=== PATIENT | male | born 1955 | race Caucasian/White ===

== ENCOUNTER 2020-10-06 22:36 | Inpatient (IN) | payer BC ==
--- NOTE | 2020-10-06 22:44 | ED Physician Documentation ---
PD HPI DYSPNEA - Stated complaint Stated Complaint: SOA - History obtained from History obtained from: Patient - History of Present Illness Timing - onset: How many months ago (gradually worsening over several months) Timing - details: Gradual onset Pain level max: 0 Pain level now: 0 Improved by: Rest Worsened by: Exertion Associated symptoms: Cough, Bilateral edema. No: Fever, Wheezing, Chest pain / discomfort Recently seen: Not recently seen - Additional information Additional information: BIBA. patient c/o several months of gradually worsening shortness of breath, primarily dyspnea on exertion. He has had intermitten, nonproductive cough over the past 2 weeks and he stopped both his lasix and his lisinopril one week ago, as he felt that the cough would worsen with dosing of these medications and thus was concerned that the cough was a side effect of these medications. He describes gradual but significant worsening of dyspnea over past 1-2 weeks; he says the reason he finally came in to the ED tonight was that his kicked him out of the house (he arrives to ED with large, packed suitcase), although he also says he had been considering coming to ED recently anyway due to the severity of the JOVEL. Review of Systems Constitutional: denies: Fever, Chills, Sweats Eyes: reports: Reviewed and negative Ears: reports: Reviewed and negative Nose: reports: Reviewed and negative Throat: reports: Reviewed and negative Cardiac: reports: Reviewed and negative Respiratory: reports: Dyspnea, Cough (occasional nonproductive cough) GI: reports: Reviewed and negative : denies: Dysuria, Frequency Skin: reports: Reviewed and negative Musculoskeletal: reports: Extremity swelling Neurologic: reports: Reviewed and negative PD PAST MEDICAL HISTORY - Past Medical History Past Medical History: Yes Cardiovascular: Congestive heart failure, Hypertension, Arrhythmia Respiratory: None - Past Surgical History Past Surgical History: Yes Cardiovascular: Coronary stent - Present Medications Home Medications: Ambulatory Orders Medication Instructions Recorded Confirmed Furosemide [Lasix] 20 - 40 mg PO DAILY 10/06/20 10/07/20 Rivaroxaban [Xarelto] 20 mg PO DAILY 10/06/20 10/06/20 lisinopriL [Zestril] 5 mg PO DAILY 10/06/20 10/07/20 Atorvastatin Calcium 40 mg PO QPM 10/07/20 10/07/20 Metoprolol Succinate [Toprol Xl] 100 mg PO DAILY 10/07/20 10/07/20 - Allergies Allergies/Adverse Reactions: Allergies Allergy/AdvReac Type Severity Reaction Status Date / Time No Known Drug Allergies Allergy Verified 10/06/20 23:04 - Living Situation Living Arrangement: reports: Other (was "kicked out" (per patient) of his home tonight by ; does not know where he will be living at this time) - Social History Does the pt smoke?: No ETOH Use: Other (h/o heavy, regular drinking (per patient) but currently drinks rarely) PD ED PE NORMAL - Vitals Vital signs reviewed: Yes - General General: Alert and oriented X 3, No acute distress, Well developed/nourished - HEENT HEENT: Moist mucous membranes - Neck Neck: Supple, no meningeal sign - Cardiac Cardiac: No murmur - Respiratory Respiratory: No respiratory distress, Other (exhibits shortness of breath when conversing) - Abdomen Abdomen: Soft, Non tender - Derm Derm: Normal color, Warm and dry PD ED PE EXPANDED - Cardiac Cardiac: Irregularly irregular - Respiratory Respiratory: Decreased breath sounds, Other (bibasilar rales) - Abdomen Abdomen: Distended (appears distended but difficult to assess whether this is part of what appears to be combination of large body habitus and possibly anasarca) - Extremities Extremities: Pedal edema bilateral (severe bilateral symmetric edema) Results - Vitals Vitals: Vital Signs - 24 hr 10/07/20 10/07/20 10/07/20 08:16 10:07 11:51 Temperature 36.4 C L 36.3 C L Heart Rate [ 97 95 Brachial] Respiratory 18 20 Rate Blood Pressure 128/71 Blood Pressure 108/78 120/46 L [Right Brachial artery] O2 Saturation 97 94 Oxygen O2 Source Room air - EKG (time done) No standard instances Rate: Rate (enter#) (122) Rhythm: Atrial fibrillation [place]: Normal Ischemia: Q waves (V1-V4) - Labs Labs: Laboratory Tests 10/06/20 10/06/20 10/06/20 23:30 23:30 23:30 WBC 9.4 RBC 2.86 L Hgb 10.8 L Hct 34.8 L MCV 121.7 H MCH 37.8 H MCHC 31.0 L RDW 14.6 Plt Count 70 L MPV 12.6 H Neut # (Auto) 4.9 Lymph # (Auto) 1.0 L [place] # (Auto) 3.1 H Eos # (Auto) 0.1 Baso # (Auto) 0.0 Absolute Nucleated RBC 0.00 Nucleated RBC % 0.0 Manual Slide Review Indicated Platelet Estimate DECREASED (<130,000) Platelet Morphology NORMAL APPEARANCE RBC Morph Micro Appear 1+ MACROCYTOSIS PT 39.7 H INR 3.9 H APTT 34.5 H Sodium 132 L Potassium 4.6 Chloride 99 L Carbon Dioxide 22 Anion Gap 11.0 BUN 28 H Creatinine 1.3 H Estimated GFR (MDRD) 56 L Glucose 101 H Calcium 8.7 Magnesium Total Bilirubin 2.8 H AST 57 H ALT 46 Alkaline Phosphatase 80 Troponin I High Sens B-Natriuretic Peptide Total Protein 7.3 Albumin 3.3 Globulin 4.0 Albumin/Globulin Ratio 0.8 L Lipase 40 Urine Color Urine Clarity Urine pH Ur Specific [place] Urine Protein Urine Glucose (UA) Urine Ketones Urine Occult Blood Urine Nitrite Urine Bilirubin Urine Urobilinogen Ur Leukocyte Esterase Urine RBC Urine WBC Ur Squamous Epith Cells Urine Bacteria Nasal Adenovirus (PCR) Nasal B. parapertussis DNA (PCR) Nasal Coronavir 229E PCR Nasal Coronavir HKU1 PCR Nasal Coronavir NL63 PCR Nasal Coronavir OC43 PCR Nasal Enterovir/Rhinovir PCR Nasal Influenza B PCR Nasal Influenza A PCR Nasal Parainfluen 1 PCR Nasal Parainfluen 2 PCR Nasal Parainfluen 3 PCR Nasal Parainfluen 4 PCR Nasal RSV (PCR) Nasal B.pertussis DNA PCR Nasal C.pneumoniae (PCR) Naveed Human Metapneumo PCR Nasal M.pneumoniae (PCR) Nasal SARS-CoV-2 (PCR) 10/06/20 10/06/20 10/07/20 23:30 23:30 05:41 WBC 11.2 H RBC 2.81 L Hgb 10.7 L Hct 34.1 L MCV 121.4 H MCH 38.1 H MCHC 31.4 L RDW 14.8 Plt Count 77 L MPV 11.8 H Neut # (Auto) 6.0 Lymph # (Auto) 1.2 L [place] # (Auto) 3.7 H Eos # (Auto) 0.1 Baso # (Auto) 0.0 Absolute Nucleated RBC 0.00 Nucleated RBC % 0.0 Manual Slide Review Indicated Platelet Estimate DECREASED (<130,000) Platelet Morphology NORMAL APPEARANCE RBC Morph Micro Appear 2+ MACROCYTOSIS PT INR APTT Sodium Potassium Chloride Carbon Dioxide Anion Gap BUN Creatinine Estimated GFR (MDRD) Glucose Calcium Magnesium Total Bilirubin AST ALT Alkaline Phosphatase Troponin I High Sens 8.7 B-Natriuretic Peptide 416 H Total Protein Albumin Globulin Albumin/Globulin Ratio Lipase Urine Color Urine Clarity Urine pH Ur Specific [place] Urine Protein Urine Glucose (UA) Urine Ketones Urine Occult Blood Urine Nitrite Urine Bilirubin Urine Urobilinogen Ur Leukocyte Esterase Urine RBC Urine WBC Ur Squamous Epith Cells Urine Bacteria Nasal Adenovirus (PCR) Nasal B. parapertussis DNA (PCR) Nasal Coronavir 229E PCR Nasal Coronavir HKU1 PCR Nasal Coronavir NL63 PCR Nasal Coronavir OC43 PCR Nasal Enterovir/Rhinovir PCR Nasal Influenza B PCR Nasal Influenza A PCR Nasal Parainfluen 1 PCR Nasal Parainfluen 2 PCR Nasal Parainfluen 3 PCR Nasal Parainfluen 4 PCR Nasal RSV (PCR) Nasal B.pertussis DNA PCR Nasal C.pneumoniae (PCR) Naveed Human Metapneumo PCR Nasal M.pneumoniae (PCR) Nasal SARS-CoV-2 (PCR) 10/07/20 10/07/20 10/07/20 05:41 06:01 08:20 WBC RBC Hgb Hct MCV MCH MCHC RDW Plt Count MPV Neut # (Auto) Lymph # (Auto) [place] # (Auto) Eos # (Auto) Baso # (Auto) Absolute Nucleated RBC Nucleated RBC % Manual Slide Review Platelet Estimate Platelet Morphology RBC Morph Micro Appear PT INR APTT Sodium 134 L Potassium 4.3 Chloride 99 L Carbon Dioxide 25 Anion Gap 10.0 BUN 30 H Creatinine 1.4 H Estimated GFR (MDRD) 51 L Glucose 103 H Calcium 8.7 Magnesium 1.7 Total Bilirubin AST ALT Alkaline Phosphatase Troponin I High Sens B-Natriuretic Peptide Total Protein Albumin Globulin Albumin/Globulin Ratio Lipase Urine Color YELLOW Urine Clarity CLEAR Urine pH 5.0 Ur Specific [place] 1.020 Urine Protein NEGATIVE Urine Glucose (UA) NEGATIVE Urine Ketones NEGATIVE Urine Occult Blood NEGATIVE Urine Nitrite NEGATIVE Urine Bilirubin NEGATIVE Urine Urobilinogen 0.2 (NORMAL) Ur Leukocyte Esterase NEGATIVE Urine RBC None Seen Urine WBC 0-3 Ur Squamous Epith Cells RARE Squamous Urine Bacteria None Seen Nasal Adenovirus (PCR) NOT DETECTED Nasal B. parapertussis DNA (PCR) NOT DETECTED Nasal Coronavir 229E PCR NOT DETECTED Nasal Coronavir HKU1 PCR NOT DETECTED Nasal Coronavir NL63 PCR NOT DETECTED Nasal Coronavir OC43 PCR NOT DETECTED Nasal Enterovir/Rhinovir PCR NOT DETECTED Nasal Influenza B PCR NOT DETECTED Nasal Influenza A PCR NOT DETECTED Nasal Parainfluen 1 PCR NOT DETECTED Nasal Parainfluen 2 PCR NOT DETECTED Nasal Parainfluen 3 PCR NOT DETECTED Nasal Parainfluen 4 PCR NOT DETECTED Nasal RSV (PCR) NOT DETECTED Nasal B.pertussis DNA PCR NOT DETECTED Nasal C.pneumoniae (PCR) NOT DETECTED Naveed Human Metapneumo PCR NOT DETECTED Nasal M.pneumoniae (PCR) NOT DETECTED Nasal SARS-CoV-2 (PCR) NOT DETECTED - Rads (name of study) chest xray Radiology: Prelim report reviewed, See rad report PD MEDICAL DECISION MAKING - ED course Complexity details: reviewed results, re-evaluated patient, considered differential, d/w patient ED course: tachycardic during most of ED stay; patient says "I'm always fast", "around 110". However, with minimal exertion such as standing and walking a few feet to bathroom or even standing at bedside and using bedside urinal, he becomes markedly dyspneic and heart rate would rapidly increase to 140s-160s; his heart rate and respiratory status would improve gradually once he was back in bed. Modest improvement in heart rate with low-dose IV cardizem. However, even late in stay after 60mg IV lasix and UO of 1500 cc, and despite patient reporting some modest improvement in symptoms when at rest, he again would become rapidly and markedly dyspneic with similar tachycardic rates as before. He thus is inappropriate for d/c home, will admit for further diuresis Departure - Departure Disposition: ED Place in Observation Clinical Impression: Dyspnea Condition: Stable Discharge Date/Time: 10/07/20 08:12
[2020-10-06 23:38] LABS: BASOPHILS % (AUTO) 0.1 %; EOSINOPHILS # (AUTO) 0.1 10^3/uL (0.0-0.7); EOSINOPHILS % (AUTO) 1.5 %; HGB - HEMOGLOBIN 10.8 g/dL (14.0-18.0); MEAN CORPUSCULAR HEMOGLOBIN 37.8 pg (27.0-31.0); MEAN CORPUSCULAR VOLUME 121.7 fL (80.0-94.0); MEAN PLATELET VOLUME 12.6 fL (7.4-11.4); MONOCYTES # (AUTO) 3.1 10^3/uL (0.0-1.0); MONOCYTES % (AUTO) 32.8 %; NEUTROPHILS # (AUTO) 4.9 10^3/uL (1.5-6.6); NEUTROPHILS % (AUTO) 52.7 %; PLT - PLATELET COUNT 70 10^3/uL (130-450); RED BLOOD COUNT 2.86 10^6/uL (4.70-6.10); RED CELL DISTRIBUTION WIDTH 14.6 % (12.0-15.0); WHITE BLOOD COUNT 9.4 x10^3/uL (4.8-10.8)
[2020-10-06 23:41] LABS: INR 3.9 (0.8-1.2); PT - PROTHROMBIN TIME 39.7 secs (9.9-12.6)
[2020-10-06 23:48] LABS: PARTIAL THROMBOPLASTIN TIME 34.5 secs (24.9-33.3)
[2020-10-06 23:51] LABS: ALBUMIN 3.3 g/dL (3.2-5.5); ALBUMIN/GLOBULIN RATIO 0.8 (1.0-2.2); BILIRUBIN,TOTAL 2.8 mg/dL (0.2-1.0); CALCIUM 8.7 mg/dL (8.5-10.3); CREATININE 1.3 mg/dL (0.6-1.2); TOTAL PROTEIN 7.3 g/dL (6.7-8.2)
[2020-10-07 00:04] LABS: PLATELET ESTIMATE, MANUAL DECREASED (<130,000) (NORMAL); PLATELET MORPHOLOGY NORMAL APPEARANCE (NORMAL); RBC MORPHOLOGY (MULTIPLE) 1+ MACROCYTOSIS (NORMAL)
[2020-10-07] MEDS ORDERED: FUROSEMIDE 40 MG/4 ML VIAL IVP STA (02:18)
[2020-10-07] MEDS ORDERED: diltiaZEM INJ 5 MG/ML VIAL IVP STA (03:47)
[2020-10-07] MEDS ORDERED: SODIUM CHLORIDE FLUSH 0.9% 10 ML SYRINGE IVP PRN (05:01)
[2020-10-07] MEDS ORDERED: ONDANSETRON 4 MG/2 ML VIAL IVP PRN (05:01)
[2020-10-07] MEDS ORDERED: ACETAMINOPHEN 325 MG TABLET PO PRN (05:01)
--- NOTE | 2020-10-07 05:05 | HISTORY & PHYSICAL EXAMINATION ---
Chief Complaint - Chief Complaint Chief Complaint: Shortness of breath History of Present Illness - Admitted From Admitted From:: Home - History Obtained From Records Reviewed: Yes History obtained from: Patient, ER Physician, EMR - History of Present Illness HPI Comment/Other: This is a 64-year-old male with a past medical history significant for coronary artery disease status post CABG atrial fibrillation on Xarelto, heart failure although unclear if this is systolic or diastolic dysfunction who presents today complaining of worsening shortness of breath over the past 6 months. He states his symptoms began this past summer when he started to gain weight and noticed his lower extremities becoming more edematous. He reports gaining at least 30 pounds over this period of time. He tried increasing his dose of Lasix from 20 mg to 40 mg without improvement and felt like he was becoming dehydrated, fatigued, dizzy. He stopped taking his Lasix a couple of weeks ago as well as his lisinopril. He has continued to take his metoprolol and Xarelto. He came to the emergency department yesterday evening after his kicked him out of the house. He states that she does not think he takes good care of himself and because of this, he said he was either going to a hotel or hospital and because of its dyspnea he decided to come here. He reports no chest pain. He stated history of coronary artery disease and had a CABG 5 years ago in [facility]. He does report orthopnea and occasional cough. Denies any abdominal pain, nausea, vomiting. Reports no dysuria, urgency, frequency. Denies any recent sick contacts. Reports no sore throat or nasal congestion. He states he does have some chronic sinus problems. He states he was hospitalized about 5 years ago at [facility] for heart failure and required multiple days of diuresis. In the emergency department, he was not hypoxic or tachypneic at rest but he would develop significant dyspnea with minimal exertion. He was tachycardic with heart rates in the 110s and he was in atrial fibrillation. His chest x-ray revealed cardiomegaly with may be some mild pulmonary vascular congestion. He was given 60 mg of IV Lasix in the emergency department and he responded well w ith 1.5 L of urine output. Despite this, he continues to have ongoing dyspnea with minimal exertion and so medicine was consulted for admission. I did discuss goals of care with the patient and he would like to be a full code. History - Past Medical History Cardiovascular: reports: Congestive heart failure, Coronary artery disease, Atrial fibrillation - Past Surgical History Cardiovascular: reports: CABG - Family & Social History Family History Comment/Other: He reports his father in his 70s from coronary artery disease. Living arrangement: At home Living Situation: With spouse/s.o. Social History Notes: He previously worked for [employer] but is now retired. He moved here to [facility] over a month ago from [place]. He is living with his but he was kicked out of the house yesterday. No history of smoking. He has a history of alcohol abuse in the past but has not drank alcohol in the past 2 months. Meds/Allgy - Home Medications Home Medications: Ambulatory Orders Medication Instructions Recorded Confirmed Furosemide [Lasix] 20 - 40 mg PO DAILY 10/06/20 10/07/20 Rivaroxaban [Xarelto] 20 mg PO DAILY 10/06/20 10/06/20 lisinopriL [Zestril] 5 mg PO DAILY 10/06/20 10/06/20 Atorvastatin Calcium 40 mg PO QPM 10/07/20 10/07/20 Metoprolol Succinate [Toprol Xl] 100 mg PO DAILY 10/07/20 10/07/20 - Allergies Allergies/Adverse Reactions: Allergies Allergy/AdvReac Type Severity Reaction Status Date / Time No Known Drug Allergies Allergy Verified 10/06/20 23:04 Review of Systems - Constitutional Constitutional: denies: Fever, Chills, Weakness - Ears, Nose & Throat Ears, Nose & Throat: denies: Nasal discharge, Nasal congestion, Sore throat - Cardiovascular Cariovascular: reports: Edema, Lightheadedness, Exertional dyspnea, Decr. exercise tolerance. denies: Chest pain, Syncope - Respiratory Respiratory: reports: Cough, Orthopnea, SOB with exertion - Gastrointestinal Gastrointestinal: denies: Abdominal pain, Nausea, Vomiting - Genitourinary Genitourinary: denies: Dysuria, Frequency, Hematuria - Integumentary Integumentary: reports: Lesions. denies: Rash - Neurological Neurological: reports: Dizziness. denies: General weakness, Numbness - All Other Systems All Other Systems: reports: Reviewed and negative Prior Level of Functionality: He is independent with ADLs. Exam - Vital Signs Reviewed Vital Signs: Yes Vital Signs: Vital Signs x48h Temp Pulse Resp BP Pulse Ox 10/07/20 03:55 99 109/78 10/07/20 03:50 120 H 120/90 H 10/07/20 02:45 18 10/07/20 02:30 111 H 18 119/80 99 10/07/20 00:00 117 H 22 113/75 100 10/06/20 22:47 36.7 C 120 H 20 111/98 H 100 - Physical Exam General Appearance: positive: No acute distress, Alert Eyes Bilateral: positive: Normal inspection, Conjunctivae nml ENT: positive: ENT inspection nml Neck: positive: Nml inspection Respiratory: positive: No respiratory distress, Other. negative: Wheezes, Rales Cardiovascular: positive: Irregularly irregular, Tachycardia. negative: Bradycardia, Systolic murmur Abdomen: positive: Non-tender, No distention, Other (He is nontender. He has pitting edema throughout his abdomen about +1). negative: Tenderness, Rebound Rectal: positive: Other (Scrotal edema.) Skin: positive: Warm, Dry Extremities: positive: Pedal edema (He has +2 pitting edema in his bilateral lower extremities. This extends all the way up to the abdomen) Neurologic/Psychiatric: positive: Oriented x3, Motor nml. negative: Disoriented to person, Disoriented to place, Disoriented to time Conclusion/Plan - Problem List (1) Acute on chronic congestive heart failure Conclusion/Plan: It is unclear if he has systolic or diastolic dysfunction as we have no prior echocardiogram to compare to and he is unaware himself. Despite his BNP only being in the 400s and no significant pulmonary vascular congestion, he does appear to be in heart failure given his significant lower extremity edema and dyspnea with exertion. He has pitting edema all the way up to his abdomen. Responded well to Lasix IV in the emergency department. We will continue to diurese him with Lasix IV [address] will [address] him on a 1800 mL fluid restriction. Low-sodium diet. Check daily weights. Strict I's and O's. If he is here on Friday then we will obtain an echocardiogram. I have requested his records from cardiology in [place]. We will check a urinalysis to evaluate for proteinuria and other potential causes of his edema. Qualifiers: Heart failure type: unspecified Qualified Code(s): I50.9 - Heart failure, unspecified (2) Atrial fibrillation with rapid ventricular response Conclusion/Plan: His heart rate is elevated in the 110s and he is in atrial fibrillation. EKG does not suggest any obvious ischemia. We will resume his home metoprolol and continue Xarelto. Monitor on telemetry. (3) Acute kidney injury Conclusion/Plan: His creatinine is elevated at 1.3 and is unclear if this is acute kidney injury or chronic kidney disease. I have requested records from his special delivery clerk. If this is acute kidney injury, this may be cardiorenal due to the heart failure. We will continue to diurese him with Lasix 40 mg IV daily. Monitor his urine output and renal function daily. (4) Hyponatremia Conclusion/Plan: This is likely hypervolemic hyponatremia secondary to heart failure. His sodium is decreased at 132. This should improve with diuresis. Daily BMP. (5) Coronary artery disease Conclusion/Plan: Stable. He has a history of coronary artery disease [facility] in [place]. His troponin is normal and EKG does not suggest ischemia. We will continue his home medications. - Lab Results Lab results reviewed: Yes Fish Bones: 10/07/20 05:41 10/07/20 05:41 - Diagnostic Imaging Results Diagnostic Imaging Results: positive: Final report reviewed - EKG Results EKG Interpreted Independently: Yes EKG Comparison: No prior EKG EKG Findings: Atrial fibrillation with rapid ventricular response. Nonspecific ST segment changes. Core Measures - Anticipated LOS I expect patient to be DC'd or transferred within 96 hours.: Yes - Issues Hospital Issues and Management Plan: 64-year-old male presents with dyspnea on exertion found to have significant anasarca likely due to heart failure. We will place him in observation for diu resis although he may ultimately need to be hospitalized for a few more days to aggressively diurese him. - DVT/VTE - Prophylaxis VTE/DVT Device ordered at admit?: No VTE/DVT Prophylaxis med ordered at admit?: Yes
[2020-10-07 05:51] LABS: BASOPHILS % (AUTO) 0.1 %; EOSINOPHILS # (AUTO) 0.1 10^3/uL (0.0-0.7); EOSINOPHILS % (AUTO) 1.2 %; HGB - HEMOGLOBIN 10.7 g/dL (14.0-18.0); LYMPHOCYTES # (AUTO) 1.2 10^3/uL (1.5-3.5); LYMPHOCYTES % (AUTO) 10.8 %; MEAN CORPUSCULAR HEMOGLOBIN 38.1 pg (27.0-31.0); MEAN CORPUSCULAR HGB CONC 31.4 g/dL (32.0-36.0); MEAN CORPUSCULAR VOLUME 121.4 fL (80.0-94.0); MEAN PLATELET VOLUME 11.8 fL (7.4-11.4); MONOCYTES # (AUTO) 3.7 10^3/uL (0.0-1.0); MONOCYTES % (AUTO) 33.1 %; NEUTROPHILS % (AUTO) 53.2 %; PLT - PLATELET COUNT 77 10^3/uL (130-450); RED BLOOD COUNT 2.81 10^6/uL (4.70-6.10); RED CELL DISTRIBUTION WIDTH 14.8 % (12.0-15.0); WHITE BLOOD COUNT 11.2 x10^3/uL (4.8-10.8)
[2020-10-07 05:58] LABS: CALCIUM 8.7 mg/dL (8.5-10.3); CREATININE 1.4 mg/dL (0.6-1.2); MAGNESIUM 1.7 mg/dL (1.7-2.8)
[2020-10-07 06:09] LABS: PLATELET ESTIMATE, MANUAL DECREASED (<130,000) (NORMAL); PLATELET MORPHOLOGY NORMAL APPEARANCE (NORMAL); RBC MORPHOLOGY (MULTIPLE) 2+ MACROCYTOSIS (NORMAL)
[2020-10-07 07:27] LABS: C. PNEUMONIAE- RESP PCR PANEL NOT DETECTED
[2020-10-07 08:31] LABS: BILIRUBIN,URINE NEGATIVE (NEGATIVE); GLUCOSE, URINE (UA) NEGATIVE (NEGATIVE); KETONES,URINE (UA) NEGATIVE (NEGATIVE); LEUKOCYTE ESTERASE, URINE NEGATIVE (NEGATIVE); NITRITE,URINE NEGATIVE (NEGATIVE); OCCULT BLOOD,URINE NEGATIVE (NEGATIVE); PROTEIN,URINE NEGATIVE (NEGATIVE); UROBILINOGEN,URINE 0.2 (NORMAL) E.U./dL (NORMAL)
[2020-10-07 08:33] LABS: CLARITY,URINE CLEAR (CLEAR)
[2020-10-07] MEDS ORDERED: METOPROLOL TARTRATE 50 MG TABLET PO SCH (09:00)
[2020-10-07 09:21] LABS: RBC,URINE None Seen /HPF (0-5)
[2020-10-07 09:22] LABS: BACTERIA,URINE None Seen /HPF (None Seen); SQUAMOUS EPITHELIAL CELL,UR RARE Squamous (<= Few)
--- NOTE | 2020-10-07 10:03 | XRAY Report ---
PROCEDURE: Chest 2 View X-Ray INDICATIONS: dyspnea TECHNIQUE: 2 view(s) of the chest. 3 images. COMPARISON: None. FINDINGS: Surgical changes and devices: Post median sternotomy. Lungs and pleura: No pleural effusions or pneumothorax. Lungs appear clear. Mediastinum: Mediastinal contours are normal. Heart size is normal. Bones and chest wall: No suspicious bony abnormalities. Soft tissues appear unremarkable. IMPRESSION: Exam is somewhat limited due to x-ray underpenetration on the frontal projections. No acute cardiopulmonary abnormality is identified. Marked cardiomegaly. This report is concordant with the overnight preliminary interpretation. Reviewed by: Lenin Mane MD on 10/07/2020 9:02 AM [facility] Approved by: Lenin Mane MD on 10/07/2020 9:02 AM [facility] Station ID: [id number]
[2020-10-07] MEDS: FUROSEMIDE 40 MG/4 ML VIAL IVP SCH (10:07)
[2020-10-07] MEDS: ATORVASTATIN 10 MG TABLET PO SCH (10:07)
[2020-10-07] MEDS: SODIUM CHLORIDE FLUSH 0.9% 10 ML SYRINGE IVP SCH ×2 (10:08→16:55)
--- NOTE | 2020-10-07 11:31 | PHARMACY PROGRESS NOTE ---
- Best Possible Medication History Admit Date and Time: 10/07/20 0501 Processed by: Pharmacy Medication History completed: Yes Patient Interview: Completed Secondary Source(s): Pharmacy records, Insurance records As the person ultimately responsible for medication therapy, providers are able to order a medication from an existing home medication list in [facility] via the "Reconcile Routine" prior to Confirmation of that medication by retail support specialist. Such practice is discouraged except when the physician, in their clinical judgment, deems that a medical need exists for a medication without regard to previous use.
[2020-10-07] MEDS: RIVAROXABAN 10 MG TABLET PO SCH (16:55)
[2020-10-07] MEDS ORDERED: METOPROLOL TARTRATE 50 MG TABLET PO STA (20:22)
[2020-10-08] MEDS: SODIUM CHLORIDE FLUSH 0.9% 10 ML SYRINGE IVP SCH ×3 (00:05→16:14)
[2020-10-08 05:25] LABS: BASOPHILS % (AUTO) 0.1 %; EOSINOPHILS # (AUTO) 0.1 10^3/uL (0.0-0.7); EOSINOPHILS % (AUTO) 1.3 %; HGB - HEMOGLOBIN 10.3 g/dL (14.0-18.0); LYMPHOCYTES # (AUTO) 1.1 10^3/uL (1.5-3.5); LYMPHOCYTES % (AUTO) 10.5 %; MEAN CORPUSCULAR HEMOGLOBIN 38.4 pg (27.0-31.0); MEAN CORPUSCULAR HGB CONC 31.5 g/dL (32.0-36.0); MEAN PLATELET VOLUME 12.2 fL (7.4-11.4); MONOCYTES # (AUTO) 3.3 10^3/uL (0.0-1.0); MONOCYTES % (AUTO) 32.3 %; NEUTROPHILS # (AUTO) 5.6 10^3/uL (1.5-6.6); NEUTROPHILS % (AUTO) 54.6 %; PLT - PLATELET COUNT 77 10^3/uL (130-450); RED BLOOD COUNT 2.68 10^6/uL (4.70-6.10); RED CELL DISTRIBUTION WIDTH 14.9 % (12.0-15.0); WHITE BLOOD COUNT 10.3 x10^3/uL (4.8-10.8)
[2020-10-08 05:35] LABS: CALCIUM 8.5 mg/dL (8.5-10.3); CREATININE 1.3 mg/dL (0.6-1.2); MAGNESIUM 1.7 mg/dL (1.7-2.8)
[2020-10-08 05:48] LABS: PLATELET MORPHOLOGY NORMAL APPEARANCE (NORMAL); RBC MORPHOLOGY (MULTIPLE) 1+ MACROCYTOSIS (NORMAL)
[2020-10-08 05:49] LABS: PLATELET ESTIMATE, MANUAL DECREASED (<130,000) (NORMAL)
[2020-10-08] MEDS: ATORVASTATIN 10 MG TABLET PO SCH (07:49)
[2020-10-08] MEDS: FUROSEMIDE 40 MG/4 ML VIAL IVP SCH (07:49)
[2020-10-08] MEDS: METOPROLOL SUCCINATE 50 MG TABLET PO SCH (07:52)
--- NOTE | 2020-10-08 11:46 | PROVIDER PROGRESS NOTE ---
Subjective - Prog Note Date Prog Note Date: 10/08/20 Prog Note Time: 11:58 - Subjective Subjective: He is now sitting at the edge of the bed and was able to sit up and transfer to the chair at the bedside. Got a little tachypneic with it. Was a struggle for him but he did it with standby assist. His main complaint is high is now uncomfortable his scrotal sac is. It is tremendously enlarged. He notes that when he goes to bed at night it is big, sleeps and it seems to shrink, but as the course of the day goes on it gets bigger again. Edema improved. Dyspnea on exertion improved. But still significantly present. Current Medications - Current Medications Current Medications: Active Medications Acetaminophen (Acetaminophen 325 Mg Tablet) 650 mg PO Q4HR PRN PRN Reason: Pain 1 to 4 Atorvastatin Calcium (Atorvastatin 10 Mg Tablet) 20 mg PO DAILY [facility] Last Admin: 10/08/20 07:49 Dose: 20 mg Documented by: Furosemide (Furosemide 40 Mg/4 Ml Vial) 40 mg IVP DAILY [facility] Last Admin: 10/08/20 07:49 Dose: 40 mg Documented by: Metoprolol Succinate (Metoprolol Succinate 50 Mg Tablet) 100 mg PO DAILY [facility] Last Admin: 10/08/20 07:52 Dose: 100 mg Documented by: Ondansetron HCl (Ondansetron 4 Mg/2 Ml Vial) 4 mg IVP Q6HR PRN PRN Reason: Nausea / Vomiting Rivaroxaban (Rivaroxaban 10 Mg Tablet) 20 mg PO QDDINNER [facility] Last Admin: 10/07/20 16:55 Dose: 20 mg Documented by: Sodium Chloride (Sodium Chloride Flush 0.9% 10 Ml Syringe) 10 ml IVP PRN PRN PRN Reason: NEEDED PER PROVIDER ORDERS Sodium Chloride (Sodium Chloride Flush 0.9% 10 Ml Syringe) 10 ml IVP 0100,0900,1700 [facility] Last Admin: 10/08/20 07:58 Dose: 10 ml Documented by: Furosemide [Lasix] 20 - 40 mg PO DAILY 10/06/20 Rivaroxaban [Xarelto] 20 mg PO DAILY 10/06/20 lisinopriL [Zestril] 5 mg PO DAILY 10/06/20 Atorvastatin Calcium 40 mg PO QPM 10/07/20 Metoprolol Succinate [Toprol Xl] 100 mg PO DAILY 10/07/20 Objective - Vital Signs/Intake & Output Reviewed Vital Signs: Yes Vital Signs: Vital Signs x48h Temp Pulse Resp BP Pulse Ox 10/08/20 08:06 36.9 C 108 H 12 127/80 98 Intake & Output: Intake & Output 10/05/20 10/06/20 10/07/20 10/08/20 23:59 23:59 23:59 23:59 Intake Total 740 510 Output Total 3625 0625 Balance -0141 -747 - Objective General Appearance: positive: No acute distress, Alert, Other (Tall, morbidly obese white male but walks with a wide-based lumbering gait because of his weight. More side to side and forward at times.) Eyes Bilateral: positive: PERRL, EOMI ENT: positive: No signs of dehydration Neck: positive: Other (Cannot assess for JVD because of the thickness of his neck). negative: Stiff neck Respiratory: positive: No respiratory distress, Other (Very diminished breath sounds at the bases. But no active crackles). negative: Wheezes, Rales, Rhonchi Cardiovascular: positive: Irregularly irregular, Systolic murmur. negative: Gallop/S4, Friction rub Abdomen: positive: Non-tender, No organomegaly, Nml bowel sounds, No distention, Other (Large, obese pannus. Bilateral scrotal enlargement due to edema. Penis retracted.) Skin: positive: Dry, Other (Legs have woody changes of chronic edema) Extremities: positive: Full ROM, Pedal edema Neurologic/Psychiatric: positive: Oriented x3, CN's nml (2-12), Motor nml - Lab Results Fish Bones: 10/08/20 04:50 10/08/20 04:50 Other Labs: Lab Results x24hrs 10/08/20 10/08/20 10/08/20 Range/Units 04:50 04:50 04:50 WBC 10.3 (4.8-10.8) x10^3/uL RBC 2.68 L (4.70-6.10) 10^6/uL Hgb 10.3 L (14.0-18.0) g/dL Hct 32.7 L (42.0-52.0) % MCV 122.0 H (80.0-94.0) fL MCH 38.4 H (27.0-31.0) pg MCHC 31.5 L (32.0-36.0) g/dL RDW 14.9 (12.0-15.0) % Plt Count 77 L (130-450) 10^3/uL MPV 12.2 H (7.4-11.4) fL Neut # (Auto) 5.6 (1.5-6.6) 10^3/uL Lymph # (Auto) 1.1 L (1.5-3.5) 10^3/uL Blount # (Auto) 3.3 H (0.0-1.0) 10^3/uL Eos # (Auto) 0.1 (0.0-0.7) 10^3/uL Baso # (Auto) 0.0 (0.0-0.1) 10^3/uL Absolute Nucleated RBC 0.02 x10^3/uL Nucleated RBC % 0.2 /100WBC Manual Slide Review Indicated Platelet Estimate DECREASED (<130,000) (NORMAL) Platelet Morphology NORMAL APPEARANCE (NORMAL) RBC Morph Micro Appear 1+ MACROCYTOSIS (NORMAL) Sodium 137 (135-145) mmol/L Potassium 3.8 (3.5-5.0) mmol/L Chloride 103 (101-111) mmol/L Carbon Dioxide 25 (21-32) mmol/L Anion Gap 9.0 (6-13) BUN 30 H (6-20) mg/dL Creatinine 1.3 H (0.6-1.2) mg/dL Estimated GFR (MDRD) 56 L (>89) Glucose 114 H (70-100) mg/dL Calcium 8.5 (8.5-10.3) mg/dL Magnesium 1.7 (1.7-2.8) mg/dL B-Natriuretic Peptide 538 H (5-100) pg/mL ABX Reporting Has patient been on IV antibiotics over the past 48 hours?: No Assessment/Plan - Problem List (1) Acute on chronic congestive heart failure Impression: His prior echocardiogram show him to have chronic systolic heart failure. Sounds like he has been noncompliant with medications even as far back as his last visit with the business machine operator. Since admission he has been on Lasix 40 daily, Toprol-XL 100 mg daily, and his blood pressure has maintained that. Occasionally drops to 108 systolic. Creatinine is staying stable with that. BNP is slightly more elevated today 538. That may be due to the creatinine 1.3. Weight was 158.7 on admission. He is now 157.5. Still has significant scrotal edema, but the edema in his thighs is much less. And he is less calf and benitez edema. But it still significant. Plan: Changed to inpatient status last night. He was observation. Continue to use IV Lasix Resume his lisinopril 5 mg a day Continue 1800 cc fluid restriction, low-sodium diet, daily weights, strict intake and output Plan for echocardiogram tomorrow Qualifiers: Heart failure type: systolic Qualified Code(s): I50.9 - Heart failure, unspecified (2) Atrial fibrillation with rapid ventricular response Conclusion/Plan: He came in in the 120s. Over the course of yesterday he went down to 117, then 100 today. Occasionally will go down into the 90s.. We have resumed home metoprolol and continue Xarelto. Monitor on telemetry. (3) Acute kidney injury Conclusion/Plan: His creatinine is elevated at 1.3 and is unclear if this is acute kidney injury or chronic kidney disease. I reviewed his records from the business machine operator.His baseline creatinine appears to be 1-1.2. So this is a mild elevation for him. It is stable during his hospitalization. (4) Hyponatremia resolved. Conclusion/Plan: This is likely hypervolemic hyponatremia secondary to heart failure. 132>>134>>137 this am. . (5) Coronary artery disease Conclusion/Plan: Stable. He has a history of coronary artery disease status post CABG approximately 5 years ago at [facility] in [place]. His troponin is normal and EKG does not suggest ischemia. We will continue his home medications.
[2020-10-08] MEDS: lisinopriL 5 MG TABLET PO SCH (12:27)
[2020-10-08] MEDS: RIVAROXABAN 10 MG TABLET PO SCH (16:14)
[2020-10-08] MEDS: ATORVASTATIN 40 MG TABLET PO SCH (20:01)
[2020-10-09] MEDS: SODIUM CHLORIDE FLUSH 0.9% 10 ML SYRINGE IVP SCH ×3 (01:10→17:11)
[2020-10-09 05:11] LABS: BASOPHILS % (AUTO) 0.1 %; EOSINOPHILS % (AUTO) 1.1 %; HGB - HEMOGLOBIN 9.6 g/dL (14.0-18.0); LYMPHOCYTES % (AUTO) 13.6 %; MEAN CORPUSCULAR HEMOGLOBIN 38.2 pg (27.0-31.0); MEAN CORPUSCULAR HGB CONC 31.5 g/dL (32.0-36.0); MEAN CORPUSCULAR VOLUME 121.5 fL (80.0-94.0); MEAN PLATELET VOLUME 11.4 fL (7.4-11.4); MONOCYTES % (AUTO) 26.2 %; NEUTROPHILS % (AUTO) 57.5 %; PLT - PLATELET COUNT 69 10^3/uL (130-450); RED BLOOD COUNT 2.51 10^6/uL (4.70-6.10); RED CELL DISTRIBUTION WIDTH 15.2 % (12.0-15.0); WHITE BLOOD COUNT 8.8 x10^3/uL (4.8-10.8)
[2020-10-09 05:18] LABS: ABNORMAL LYMPHS % (MANUAL) 0 %; BAND NEUTROPHILS % (MANUAL) 0 %
[2020-10-09 05:26] LABS: CALCIUM 8.3 mg/dL (8.5-10.3); CREATININE 1.3 mg/dL (0.6-1.2); MAGNESIUM 1.6 mg/dL (1.7-2.8)
[2020-10-09 06:10] LABS: DIFFERENTIAL COMMENT MANUAL DIFFERENTIAL; EOSINOPHILS # (MANUAL) 0.1 10^3/uL (0-0.7); LYMPHOCYTES # (MANUAL) 1.2 10^3/uL (1.5-3.5); LYMPHOCYTES % (MANUAL) 14 %; METAMYELOCYTES % (MANUAL) 1 %; MONOCYTES # (MANUAL) 2.3 10^3/uL (0.0-1.0); MYELOCYTES % (MANUAL) 2 %; PLATELET ESTIMATE, MANUAL DECREASED (<130,000) (NORMAL); PLATELET MORPHOLOGY NORMAL APPEARANCE (NORMAL); RBC MORPHOLOGY (MULTIPLE) 2+ MACROCYTOSIS (NORMAL)
[2020-10-09] MEDS: METOPROLOL SUCCINATE 50 MG TABLET PO SCH ×2 (07:54→12:30)
[2020-10-09] MEDS: FUROSEMIDE 40 MG/4 ML VIAL IVP SCH (07:54)
[2020-10-09] MEDS: lisinopriL 5 MG TABLET PO SCH (07:55)
[2020-10-09] MEDS ORDERED: MAGNESIUM OXIDE 400 MG TABLET PO ONE (08:00)
--- NOTE | 2020-10-09 10:48 | PROVIDER PROGRESS NOTE ---
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 Recovers quickly. Eating well. Scrotum is uncomfortable but not painful. Legs are less painful. Current Medications - Current Medications Current Medications: Active Medications Acetaminophen (Acetaminophen 325 Mg Tablet) 650 mg PO Q4HR PRN PRN Reason: Pain 1 to 4 Atorvastatin Calcium (Atorvastatin 40 Mg Tablet) 40 mg PO QPM [facility] Last Admin: 10/08/20 20:01 Dose: 40 mg Documented by: Furosemide (Furosemide 40 Mg/4 Ml Vial) 40 mg IVP DAILY [facility] Last Admin: 10/09/20 07:54 Dose: 40 mg Documented by: Lisinopril (Lisinopril 5 Mg Tablet) 5 mg PO DAILY [facility] Last Admin: 10/09/20 07:55 Dose: 5 mg Documented by: Metoprolol Succinate (Metoprolol Succinate 50 Mg Tablet) 100 mg PO DAILY [facility] Last Admin: 10/09/20 07:54 Dose: 100 mg Documented by: Metoprolol Succinate (Metoprolol Succinate 50 Mg Tablet) 50 mg PO DAILY [facility] Last Admin: 10/09/20 12:30 Dose: Not Given Documented by: Ondansetron HCl (Ondansetron 4 Mg/2 Ml Vial) 4 mg IVP Q6HR PRN PRN Reason: Nausea / Vomiting Rivaroxaban (Rivaroxaban 10 Mg Tablet) 20 mg PO QDDINNER [facility] Last Admin: 10/09/20 17:09 Dose: 20 mg Documented by: Sodium Chloride (Sodium Chloride Flush 0.9% 10 Ml Syringe) 10 ml IVP PRN PRN PRN Reason: NEEDED PER PROVIDER ORDERS Sodium Chloride (Sodium Chloride Flush 0.9% 10 Ml Syringe) 10 ml IVP 0100,0900,1700 [facility] Last Admin: 10/09/20 17:11 Dose: 10 ml Documented by: Furosemide [Lasix] 20 - 40 mg PO DAILY 10/06/20 Rivaroxaban [Xarelto] 20 mg PO DAILY 10/06/20 lisinopriL [Zestril] 5 mg PO DAILY 10/06/20 Atorvastatin Calcium 40 mg PO QPM 10/07/20 Metoprolol Succinate [Toprol Xl] 100 mg PO DAILY 10/07/20 Objective - Vital Signs/Intake & Output Reviewed Vital Signs: Yes Vital Signs: Vital Signs x48h Temp Pulse Pulse Resp BP Pulse Ox 10/09/20 08:03 36.4 C L 101 H 12 114/67 98 10/09/20 03:41 36.7 C 115 H 22 118/69 94 Intake & Output: Intake & Output 10/06/20 10/07/20 10/08/20 10/09/20 23:59 23:59 23:59 23:59 Intake Total 740 1050 540 Output Total 3627 5255 150 Balance -6725 -825 390 - Objective General Appearance: positive: No acute distress, Alert, Other (Morbidly obese white male, sitting comfortably upright in the chair, eating breakfast lunch. Watching TV. 6 foot 2 inches tall weighs 158 kg.) Eyes Bilateral: positive: PERRL ENT: positive: Pharynx nml Neck: negative: Stiff neck Respiratory: positive: No respiratory distress. negative: Wheezes, Rales, Rhonchi Cardiovascular: positive: Regular rate & rhythm. negative: Gallop/S4, Friction rub Abdomen: positive: Non-tender, Nml bowel sounds, No distention, Other (Hugely obese pannus makes it difficult to assess for organomegaly. Scrotal sac 50% the size it was yesterday.) Skin: positive: Warm, Dry Extremities: positive: Full ROM, Pedal edema Neurologic/Psychiatric: positive: Oriented x3, CN's nml (2-12), Motor nml - Lab Results Fish Bones: 10/09/20 04:45 10/09/20 04:45 Other Labs: Lab Results x24hrs 10/09/20 10/09/20 Range/Units 04:45 04:45 WBC 8.8 (4.8-10.8) x10^3/uL RBC 2.51 L (4.70-6.10) 10^6/uL Hgb 9.6 L (14.0-18.0) g/dL Hct 30.5 L (42.0-52.0) % MCV 121.5 H (80.0-94.0) fL MCH 38.2 H (27.0-31.0) pg MCHC 31.5 L (32.0-36.0) g/dL RDW 15.2 H (12.0-15.0) % Plt Count 69 L (130-450) 10^3/uL MPV 11.4 (7.4-11.4) fL Neut # (Auto) Not Reportable Lymph # (Auto) Not Reportable Warrick # (Auto) Not Reportable Eos # (Auto) Not Reportable Baso # (Auto) Not Reportable Absolute Nucleated RBC Not Reportable Total Counted 100 Band Neuts % (Manual) 0 (0 - 10) % Abnorm Lymph % (Manual) 0 % Metamyelocytes % 1 H ( - 0) % Myelocytes % 2 H ( - 0) % Nucleated RBC % Not Reportable Neutrophils # (Manual) 4.9 (1.5-6.6) 10^3/uL Lymphocytes # (Manual) 1.2 L (1.5-3.5) 10^3/uL Monocytes # (Manual) 2.3 H (0.0-1.0) 10^3/uL Eosinophils # (Manual) 0.1 (0-0.7) 10^3/uL Basophils # (Manual) 0.0 (0-0.1) 10^3/uL Differential Comment MANUAL DIFFERENTIAL WBC Morphology NORMAL APPEARANCE (NORMAL) Platelet Estimate DECREASED (<130,000) (NORMAL) Platelet Morphology NORMAL APPEARANCE (NORMAL) RBC Morph Micro Appear 2+ MACROCYTOSIS (NORMAL) Sodium 137 (135-145) mmol/L Potassium 3.5 (3.5-5.0) mmol/L Chloride 102 (101-111) mmol/L Carbon Dioxide 26 (21-32) mmol/L Anion Gap 9.0 (6-13) BUN 29 H (6-20) mg/dL Creatinine 1.3 H (0.6-1.2) mg/dL Estimated GFR (MDRD) 56 L (>89) Glucose 109 H (70-100) mg/dL Calcium 8.3 L (8.5-10.3) mg/dL Magnesium 1.6 L (1.7-2.8) mg/dL ABX Reporting Has patient been on IV antibiotics over the past 48 hours?: No Assessment/Plan - Problem List (1) Acute on chronic congestive heart failure Impression: His prior echocardiogram show him to have chronic systolic heart failure. Sounds like he has been noncompliant with medications even as far back as his last visit with the telecom billing analyst. Since admission he has been on Lasix 40 daily, Toprol-XL 100 mg daily, and his blood pressure has maintained that. Lisinopril 5 mg resumed 10/08. Blood pressure is 102 systolic to 118. Occasionally drops to 108 systolic. Creatinine is staying stable with that. On physical examination he has less leg edema, less scrotal edema. He is less tachypneic. However weight is stable. He is 158 kg today. Admission weight was 158.7. Plan: Changed to inpatient status from observation status 10/07 Continue to use IV Lasix Continue 1800 cc fluid restriction, low-sodium diet, daily weights, strict in take and output Plan for echocardiogram today Plan to discharge by tomorrow or the . But then he should have had enough control of his edema to be comfortable in the outpatient setting. Qualifiers: Heart failure type: systolic Qualified Code(s): I50.9 - Heart failure, unspecified (2) Atrial fibrillation with rapid ventricular response Conclusion/Plan: He came in in the 120s. With resumption of his medications he has slowed down from the 120s. But the rate varies between 9210. Not at goal of being consistently below 110. We have resumed home metoprolol and continue Xarelto. Plan: Increase metoprolol 150 a day Continue to monitor on telemetry (3) Acute kidney injury Conclusion/Plan: His creatinine is elevated at 1.3 and is unclear if this is acute kidney injury or chronic kidney disease. I reviewed his records from the telecom billing analyst.His baseline creatinine appears to be 1-1.2. So this is a mild elevation for him. It is stable during his hospitalization. (4) Hyponatremia resolved. Conclusion/Plan: This is likely hypervolemic hyponatremia secondary to heart failure. 132>>134>>137 this am. . (5) Coronary artery disease Conclusion/Plan: Stable. He has a history of coronary artery disease status post CABG approximately 5 years ago at [facility] in [place]. His troponin is normal and EKG does not suggest ischemia. We will continue his home medications.
[2020-10-09] MEDS: RIVAROXABAN 10 MG TABLET PO SCH (17:09)
[2020-10-09] MEDS: ATORVASTATIN 40 MG TABLET PO SCH (20:27)
[2020-10-10] MEDS: SODIUM CHLORIDE FLUSH 0.9% 10 ML SYRINGE IVP SCH ×2 (01:54→08:27)
[2020-10-10 05:33] LABS: BASOPHILS % (AUTO) 0.1 %; EOSINOPHILS % (AUTO) 1.4 %; HGB - HEMOGLOBIN 9.6 g/dL (14.0-18.0); LYMPHOCYTES % (AUTO) 13.2 %; MEAN CORPUSCULAR HEMOGLOBIN 38.9 pg (27.0-31.0); MEAN CORPUSCULAR HGB CONC 31.8 g/dL (32.0-36.0); MEAN CORPUSCULAR VOLUME 122.3 fL (80.0-94.0); MEAN PLATELET VOLUME 11.7 fL (7.4-11.4); MONOCYTES % (AUTO) 32.1 %; NEUTROPHILS % (AUTO) 52.2 %; PLT - PLATELET COUNT 65 10^3/uL (130-450); RED BLOOD COUNT 2.47 10^6/uL (4.70-6.10); RED CELL DISTRIBUTION WIDTH 15.3 % (12.0-15.0); WHITE BLOOD COUNT 7.7 x10^3/uL (4.8-10.8)
[2020-10-10 05:36] LABS: ABNORMAL LYMPHS % (MANUAL) 0 %
[2020-10-10 05:39] LABS: CALCIUM 8.4 mg/dL (8.5-10.3); CREATININE 1.2 mg/dL (0.6-1.2); MAGNESIUM 1.7 mg/dL (1.7-2.8)
[2020-10-10 06:04] LABS: BAND NEUTROPHILS % (MANUAL) 1 %; DIFFERENTIAL COMMENT MANUAL DIFFERENTIAL; LYMPHOCYTES # (MANUAL) 1.2 10^3/uL (1.5-3.5); LYMPHOCYTES % (MANUAL) 15 %; MONOCYTES # (MANUAL) 1.7 10^3/uL (0.0-1.0); PLATELET ESTIMATE, MANUAL DECREASED (<130,000) (NORMAL); PLATELET MORPHOLOGY NORMAL APPEARANCE (NORMAL); RBC MORPHOLOGY (MULTIPLE) 1+ MACROCYTOSIS (NORMAL)
[2020-10-10] MEDS: lisinopriL 5 MG TABLET PO SCH (08:27)
[2020-10-10] MEDS: FUROSEMIDE 40 MG/4 ML VIAL IVP SCH (08:27)
[2020-10-10] MEDS: METOPROLOL SUCCINATE 50 MG TABLET PO SCH ×2 (08:28)
--- NOTE | 2020-10-10 13:53 | Discharge Plan ---
Discharge Plan Problem Reviewed?: Yes Disposition: Home, Self Care Condition: Poor Prescriptions: Furosemide [Lasix] 40 mg PO DAILY #30 tablet Metoprolol Succinate [Toprol Xl] 50 mg PO DAILY #30 tablet Diet: Cardiac Activity Restrictions: Activity as Tolerated Shower Restrictions: No (fall precaution) Instruction Topics: Heart Failure Meds Control, Heart Failure, Heart Failure Diet Changes, Heart Failure Coping, Furosemide tablets, Metoprolol tablets Health Concerns: heart failure and fluid overloaded Plan of Treatment: you were found to have acute on chronic heart failure with fluid overloaded. advise followup with your PCP and referral to see supervisor extruding department as out-pt. reduced salt intake and reduced your fluid overloaded, and watch closely your weight gain, strongly advise you doing medical compliance, and avoid your alcohol intake. your home medication Metoprolol dosage changed from 100mg daily to 150 mg daily, you Lasix dosage changed to 40 mg daily now, resume your other home meds as the scheduled. Care Goals: stabilization and improvement of your medical conditions. Assessment: discussed in detail care plan with you, answer your questions, you understood and agreed. Additional Instructions or Follow Up instructions: you may followup with your PCP in one week, followup with supervisor extruding department as out- pt. Should your symptoms return or worsen, you may present ER or call 911 for help. Follow-Up Care: [facility], [facility] No Smoking: If you smoke, Please STOP! Call for help. Follow-up with: Peter Dawson MD [Primary Care Provider] -
--- NOTE | 2020-10-10 14:03 | DISCHARGE SUMMARY ---
Discharge Summary Admit Date: 10/07/20 Discharge Date: 10/10/20 Discharging Provider: Arjun Matt Primary Care Provider: Andrew Ortega Condition at Discharge: Poor Discharge Disposition: 01 Home, Self Care Discharge Facility Name: home - DIAGNOSES Discharge Diagnoses with Status of Each Condition: (1) Acute on chronic congestive heart failure resolved in his acute on chronic phase of heart failure. pt and nurse walked with pt, pt has no shortness of breath, Patient's oxygen saturations is stable. Patient was treated with intravenous diuretic Lasix in the hospital. Patient's home diuretics Lasix increased to 40 mg daily. Patient's metoprolol dosage increases to 150 mg daily. Echo show patient had 35% of EF with RVSP 53mmHg. On physical examination he has less leg edema, less scrotal edema. Patient is advised to follow-up with his PCP in 1 week, and a referral to see brand ambassador as outpatient soon as possible. (2) Atrial fibrillation with rapid ventricular response Patient's heart rate is controlled to 92 in the rest. His heart rate increase as it response to exertion status. pt's home meds metoprolol increased to 150 a day from 100mg daily (3) Acute kidney injury resolved (4) Hyponatremia resolved. resolved (5) Coronary artery disease Stable. resume home meds (6)medical non-compliance Patient reported he stopped taking his Lasix and lisinopril For couple weeks before admission. Advised patient it is extremely important for his medical compliant - HPI History of Present Illness: refer from Dr. Salazar's HPI on 10/07/2020 This is a 64-year-old male with a past medical history significant for coronary artery disease status post CABG atrial fibrillation on Xarelto, heart failure although unclear if this is systolic or diastolic dysfunction who presents today complaining of worsening shortness of breath over the past 6 months. He states his symptoms began this past summer when he started to gain weight and noticed his lower extremities becoming more edematous. He reports gaining at least 30 pounds over this period of time. He tried increasing his dose of Lasix from 20 mg to 40 mg without improvement and felt like he was becoming dehydrated, fatigued, dizzy. He stopped taking his Lasix a couple of weeks ago as well as h is lisinopril. He has continued to take his metoprolol and Xarelto. He came to the emergency department yesterday evening after his kicked him out of the house. He states that she does not think he takes good care of himself and because of this, he said he was either going to a hotel or hospital and because of its dyspnea he decided to come here. He reports no chest pain. He stated history of coronary artery disease and had a CABG 5 years ago in [facility]. He does report orthopnea and occasional cough. Denies any abdominal pain, nausea, vomiting. Reports no dysuria, urgency, frequency. Denies any recent sick contacts. Reports no sore throat or nasal congestion. He states he does have some chronic sinus problems. He states he was hospitalized about 5 years ago at [facility] for heart failure and required multiple days of diuresis. In the emergency department, he was not hypoxic or tachypneic at rest but he would develop significant dyspnea with minimal exertion. He was tachycardic with heart rates in the 110s and he was in atrial fibrillation. His chest x-ray revealed cardiomegaly with may be some mild pulmonary vascular congestion. He was given 60 mg of IV Lasix in the emergency department and he responded well with 1.5 L of urine output. Despite this, he continues to have ongoing dyspnea with minimal exertion and so medicine was consulted for admission. I did discuss goals of care with the patient and he would like to be a full code. - HOSPITAL COURSE Hospital Course: Patient was admitted for acute on chronic heart failure with shortness of breathing and fluids overloaded. Patient was given intravenous diuretics Lasix, Fluid restriction, daily weight, low-sodium diet. After treatment, patient clin ically had greatly improved, patient can walk without obviously shortness of breathing. Patient's oxygen saturation is stable. Patient's acute kidney injury was resolved as well. - ALLERGIES Allergies/Adverse Reactions: Allergies Allergy/AdvReac Type Severity Reaction Status Date / Time No Known Drug Allergies Allergy Verified 10/06/20 23:04 - MEDICATIONS Home Medications: Ambulatory Orders Medication Instructions Recorded Confirmed Rivaroxaban [Xarelto] 20 mg PO DAILY 10/06/20 10/06/20 lisinopriL [Zestril] 5 mg PO DAILY 10/06/20 10/07/20 Atorvastatin Calcium 40 mg PO QPM 10/07/20 10/07/20 Metoprolol Succinate [Toprol Xl] 100 mg PO DAILY 10/07/20 10/07/20 Furosemide [Lasix] 40 mg PO DAILY #30 tablet 10/10/20 Metoprolol Succinate [Toprol Xl] 50 mg PO DAILY #30 tablet 10/10/20 - PHYSICAL EXAM AT DISCHARGE General Appearance: positive: No acute distress, Alert. negative: Lethargic Eyes Bilateral: positive: Normal inspection, PERRL, No lid inflammation ENT: positive: ENT inspection nml, No signs of dehydration. negative: Purulent nasal drainage Neck: positive: Nml inspection, Thyroid nml, Trachea midline. negative: Thyromegaly, Stiff neck, Tracheal deviation Respiratory: positive: Chest non-tender, No respiratory distress. negative: Wheezes, Rales, Rhonchi Cardiovascular: positive: Regular rate & rhythm, No murmur. negative: Tachycardia, Bradycardia, Systolic murmur, Diastolic murmur Peripheral Pulses: positive: 2+ Abdomen: positive: Non-tender, Nml bowel sounds, No distention. negative: Tenderness, Guarding, Rebound Back: positive: Nml inspection. negative: CVA tenderness (R), CVA tenderness (L) Skin: positive: Color nml, No rash, Warm, Dry. negative: Cyanosis, Diaphoresis, Pallor Extremities: positive: Non-tender, Full ROM, Nml appearance. negative: Calf te nderness Neurologic/Psychiatric: positive: Oriented x3, Motor nml, Sensation nml, Mood/affect nml. negative: Weakness, Sensory loss, Facial droop, Slurred/abnml speech, Depressed mood/affect - LABS Result Diagrams: 10/10/20 05:11 10/10/20 05:11 - FOLLOW UP Follow Up: you were found to have acute on chronic heart failure with fluid overloaded. advise followup with your PCP and referral to see brand ambassador as out-pt. reduced salt intake and reduced your fluid overloaded, and watch closely your weight gain, strongly advise you doing medical compliance, and avoid your alcohol intake. your home medication Metoprolol dosage changed from 100mg daily to 150 mg daily, you Lasix dosage changed to 40 mg daily now, resume your other home meds as the scheduled. you may followup with your PCP in one week, followup with brand ambassador as out- pt. Should your symptoms return or worsen, you may present ER or call 911 for help. - TIME SPENT Time Spent in Discharge (Minutes): 30
[2020-10-10 14:42] VITALS: BP 116/81
== END 2020-10-10 14:30 | disposition home or self-care (01) | DRG 292 ==
LOC: ED 22:36 → MS2 10-07 05:01 → OBSVTOIN 10-07 14:09
PROVIDERS: ADMIT Internal Medicine; ATTEND Nurse Practitioner Gerontology
DX: I11.0 Hypertensive heart disease with heart failure (principal); E87.1 Hypo-osmolality and hyponatremia; Z68.42 Body mass index [BMI] 45.0-49.9, adult; I50.23 Acute on chronic systolic (congestive) heart failure; I48.91 Unspecified atrial fibrillation; Z79.01 Long term (current) use of anticoagulants; I25.10 Atherosclerotic heart disease of native coronary artery without angina pectoris; T46.4X6A Underdosing of angiotensin-converting-enzyme inhibitors, initial encounter; T50.1X6A Underdosing of loop [high-ceiling] diuretics, initial encounter; Z91.128 Patient's intentional underdosing of medication regimen for other reason; Z95.1 Presence of aortocoronary bypass graft; E66.01 Morbid (severe) obesity due to excess calories; E78.00 Pure hypercholesterolemia, unspecified; Z82.49 Family history of ischemic heart disease and other diseases of the circulatory system; Z20.828 Contact with and (suspected) exposure to other viral communicable diseases
CPT/HCPCS: 0202U; 36415; 71046; 80048; 80053; 81001; 83690; 83735; 83880; 84484; 85025; 85610; 85730; 93005; 93306; 96374; 96375; 96376; 99284; 99285; A9270

== ENCOUNTER 2020-11-19 20:14 | Outpatient (CLI) | payer BC | END 2020-11-19 20:15 | disposition critical access hospital (66) | LOC: EMS 20:14 | PROVIDERS: ATTEND Surgery | DX: R53.1 Weakness (principal) | CPT/HCPCS: A0425; A0427 ==

== ENCOUNTER 2020-11-19 20:36 | Inpatient (IN) | payer BC ==
[2020-11-19] MEDS ORDERED: FUROSEMIDE 40 MG/4 ML VIAL IVP STA (20:46)
--- NOTE | 2020-11-19 20:46 | ED Physician Documentation ---
History of Present Illness - Stated complaint Stated Complaint: GENERLIZED WEAKNESS/EXTREMITY SWELLING - Chief complaint Chief Complaint: Ext Problem - History obtained from History obtained from: Patient - History of Present Illness Timing: How many weeks ago (1) Pain level max: 8 Pain level now: 8 - Additonal information Additional information: Patient is a 64-year-old male with a history of congestive heart failure who presents to the emergency department with a 20 pound weight gain over the past 3 weeks. He states has worsening swelling of the bilateral lower extremities, all the way up into his abdomen and arms. He states he is taking Lasix 40 mg p.o. daily. Has not followed up with his primary care provider since he was discharged from the hospital about a month ago. Having worsening difficulty breathing. He was hypoxic initially with EMS, 88% on room air. They placed him on 2 L nasal cannula oxygen. He does have significant dyspnea with any sort of movement. Patient denies any chest pain. No cough. Nothing makes it better or worse. History of coronary artery disease with CABG Has chronic left shoulder pain, 8/10. worse with movement and better with rest. Review of Systems Ten Systems: 10 systems reviewed and negative Constitutional: denies: Fever, Chills Throat: denies: Sore throat Cardiac: denies: Palpitations Respiratory: denies: Cough GI: denies: Vomiting, Diarrhea Skin: denies: Rash Musculoskeletal: denies: Neck pain, Back pain Neurologic: denies: Headache PD PAST MEDICAL HISTORY - Past Medical History Past Medical History: Yes Cardiovascular: Congestive heart failure, Hypertension, Arrhythmia Respiratory: COPD Neuro: None Endocrine/Autoimmune: Type 2 diabetes : None Psych: None Musculoskeletal: None Derm: None - Past Surgical History Past Surgical History: Yes Cardiovascular: Coronary stent - Present Medications Home Medications: Ambulatory Orders Medication Instructions Recorded Confirmed Rivaroxaban [Xarelto] 20 mg PO DAILY 10/06/20 11/19/20 lisinopriL [Zestril] 5 mg PO DAILY 10/06/20 11/19/20 Atorvastatin Calcium 40 mg PO QPM 10/07/20 11/19/20 Metoprolol Succinate [Toprol Xl] 100 mg PO DAILY 10/07/20 11/19/20 Furosemide [Lasix] 40 mg PO DAILY #30 tablet 10/10/20 11/19/20 Metoprolol Succinate [Toprol Xl] 50 mg PO DAILY #30 tablet 10/10/20 11/19/20 - Allergies Allergies/Adverse Reactions: Allergies Allergy/AdvReac Type Severity Reaction Status Date / Time No Known Drug Allergies Allergy Verified 11/19/20 20:42 - Social History Does the pt smoke?: No Smoking Status: Never smoker Does the pt drink ETOH?: No Does the pt have substance abuse?: No - Immunizations Immunizations are current?: Yes - POLST Patient has POLST: No PD ED PE NORMAL - Vitals Vital signs reviewed: Yes - General General: Alert and oriented X 3, Other (mod resp distress) - HEENT HEENT: PERRL, Moist mucous membranes - Neck Neck: Supple, no meningeal sign - Cardiac Cardiac: Strong equal pulses, Other (tachycardic, irregular) - Respiratory Respiratory: No respiratory distress, Other (crackles B) - Abdomen Abdomen: Soft, Non tender, Non distended - Derm Derm: Warm and dry, No rash - Extremities Extremities: No deformity, Other (diffuse pitting edema from toes to chest and B arms. anasarca) - Neuro Neuro: Alert and oriented X 3 - Psych Psych: Normal mood, Normal affect Results - Vitals Vitals: Vital Signs - 24 hr 11/19/20 11/19/20 11/19/20 20:42 20:52 21:07 Temperature 37.6 C Heart Rate 113 H 105 H 107 H Respiratory 18 15 14 Rate Blood Pressure 113/83 H 113/83 H 93/64 O2 Saturation 94 94 94 11/19/20 11/19/20 11/19/20 21:12 21:15 21:18 Temperature Heart Rate 86 90 106 H Respiratory 12 Rate Blood Pressure 91/50 L 89/47 L 96/56 L O2 Saturation 98 97 11/19/20 21:30 Temperature 36.4 C L Heart Rate 121 H Respiratory 12 Rate Blood Pressure 117/71 O2 Saturation 98 Oxygen O2 Source Nasal cannula - EKG (time done) 2042 Rate: Rate (enter#) (123) Rhythm: Atrial fibrillation (w/RVR) [place]: Normal QRS: Normal Ischemia: Non specific changes - Labs Labs: Laboratory Tests 11/19/20 11/19/20 11/19/20 20:45 20:45 20:45 WBC 26.0 H RBC 2.25 L Hgb 8.7 L Hct 26.2 L MCV 116.4 H MCH 38.7 H MCHC 33.2 RDW 15.1 H Plt Count 107 L MPV 11.6 H Neut # (Auto) Not Reportable Lymph # (Auto) Not Reportable [place] # (Auto) Not Reportable Eos # (Auto) Not Reportable Baso # (Auto) Not Reportable Absolute Nucleated RBC Not Reportable Total Counted 100 Band Neuts % (Manual) 12 H Reactive Lymphs % (Man) 2 Abnorm Lymph % (Manual) 0 Nucleated RBC % Not Reportable Neutrophils # (Manual) 18.5 H Lymphocytes # (Manual) 1.6 Monocytes # (Manual) 5.2 H Eosinophils # (Manual) 0.8 H Basophils # (Manual) 0.0 Differential Comment MANUAL DIFFERENTIAL WBC Morphology 2+ TOXIC GRANULATION Platelet Estimate DECREASED (<130,000) Platelet Morphology NORMAL APPEARANCE RBC Morph Micro Appear NORMAL APPEARANCE Sodium 126 L Potassium 5.4 H Chloride 94 L Carbon Dioxide 20 L Anion Gap 12.0 BUN 98 H* Creatinine 4.8 H Estimated GFR (MDRD) 12 L Glucose 102 H Calcium 8.3 L Total Bilirubin 2.9 H AST 21 ALT 11 Alkaline Phosphatase 72 B-Natriuretic Peptide 632 H Total Protein 7.6 Albumin 2.8 L Globulin 4.8 H Albumin/Globulin Ratio 0.6 L Urine Color Urine Clarity Urine pH Ur Specific [place] Urine Protein Urine Glucose (UA) Urine Ketones Urine Occult Blood Urine Nitrite Urine Bilirubin Urine Urobilinogen Ur Leukocyte Esterase Ur Microscopic Review Urine Culture Comments 11/19/20 21:25 WBC RBC Hgb Hct MCV MCH MCHC RDW Plt Count MPV Neut # (Auto) Lymph # (Auto) [place] # (Auto) Eos # (Auto) Baso # (Auto) Absolute Nucleated RBC Total Counted Band Neuts % (Manual) Reactive Lymphs % (Man) Abnorm Lymph % (Manual) Nucleated RBC % Neutrophils # (Manual) Lymphocytes # (Manual) Monocytes # (Manual) Eosinophils # (Manual) Basophils # (Manual) Differential Comment WBC Morphology Platelet Estimate Platelet Morphology RBC Morph Micro Appear Sodium Potassium Chloride Carbon Dioxide Anion Gap BUN Creatinine Estimated GFR (MDRD) Glucose Calcium Total Bilirubin AST ALT Alkaline Phosphatase B-Natriuretic Peptide Total Protein Albumin Globulin Albumin/Globulin Ratio Urine Color DARK YELLOW Urine Clarity HAZY Urine pH 5.0 Ur Specific [place] >=1.030 H Urine Protein 100 H Urine Glucose (UA) NEGATIVE Urine Ketones NEGATIVE Urine Occult Blood NEGATIVE Urine Nitrite NEGATIVE Urine Bilirubin NEGATIVE Urine Urobilinogen 1 (NORMAL) Ur Leukocyte Esterase TRACE H Ur Microscopic Review INDICATED Urine Culture Comments Not Reportable - Rads (name of study) cxr Radiology: Prelim report reviewed, EMP read contemporaneously, See rad report (Congestive heart failure exacerbation ) PD MEDICAL DECISION MAKING - ED course Complexity details: reviewed results, re-evaluated patient, considered differential, d/w patient, d/w portfolio consultant ED course: Patient is a 64-year-old male who presents to the emergency department with anasarca. Also found to be in renal failure, hyponatremia and hyperkalemia. Also in atrial fibrillation with rapid ventricular response. He had a longstanding history of alcohol abuse until 2018. No alcohol for the past 2 years. Possible that he has liver cirrhosis? He states that his liver has never been evaluated. Does have a leukocytosis, unclear etiology. No fevers. No chills. Blood cultures were drawn and sent. CT of the abdomen pelvis was ordered. This is noncontrast due to the liver failure. This will be followed up by the hospitalist. Patient is significantly dyspneic with very little movement. Discussed with Dr. Sue, hospitalist who accepts This document was made in part using voice recognition software. While efforts are made to proofread this document, sound alike and grammatical errors may occur. Departure - Departure Disposition: 66 [facility] DC/Xfer Clinical Impression: Atrial fibrillation with rapid ventricular response, Hyponatremia, Hyperkalemia, Thrombocytopenia, Macrocytosis Acute on chronic congestive heart failure Qualifiers: Heart failure type: unspecified Qualified Code(s): I50.9 - Heart failure, unspecified Leukocytosis Qualifiers: Leukocytosis type: unspecified Qualified Code(s): D72.829 - Elevated white blood cell count, unspecified Acute renal failure Qualifiers: Acute renal failure type: unspecified Qualified Code(s): N17.9 - Acute kidney failure, unspecified Anemia Qualifiers: Anemia type: unspecified type Qualified Code(s): D64.9 - Anemia, unspecified Condition: Stable
[2020-11-19 20:55] LABS: BASOPHILS % (AUTO) 0.1 %; EOSINOPHILS % (AUTO) 0.3 %; HGB - HEMOGLOBIN 8.7 g/dL (14.0-18.0); LYMPHOCYTES % (AUTO) 2.4 %; MEAN CORPUSCULAR HEMOGLOBIN 38.7 pg (27.0-31.0); MEAN CORPUSCULAR HGB CONC 33.2 g/dL (32.0-36.0); MEAN CORPUSCULAR VOLUME 116.4 fL (80.0-94.0); MEAN PLATELET VOLUME 11.6 fL (7.4-11.4); MONOCYTES % (AUTO) 30.8 %; NEUTROPHILS % (AUTO) 60.7 %; PLT - PLATELET COUNT 107 10^3/uL (130-450); RED BLOOD COUNT 2.25 10^6/uL (4.70-6.10); RED CELL DISTRIBUTION WIDTH 15.1 % (12.0-15.0)
[2020-11-19] MEDS ORDERED: diltiaZEM INJ 5 MG/ML VIAL IVP STA (20:55)
[2020-11-19 21:04] LABS: ABNORMAL LYMPHS % (MANUAL) 0 %
--- NOTE | 2020-11-19 21:06 | XRAY Report ---
PROCEDURE: Chest 1 View X-Ray INDICATIONS: dyspnea, CHF TECHNIQUE: One view of the chest was acquired. COMPARISON: 10/06/2020 FINDINGS: Surgical changes and devices: Remote CABG. Lungs and pleura: Pulmonary edema, mild right basilar atelectasis, small right pleural effusion. Mediastinum: Mediastinal contours appear normal. Marked cardiomegaly. Bones and chest wall: No suspicious bony lesions. Overlying soft tissues appear unremarkable. IMPRESSION: Congestive heart failure exacerbation Reviewed by: Donal Lawrence MD on 11/19/2020 9:05 PM PST Approved by: Donal Lawrence MD on 11/19/2020 9:05 PM PST Station ID: [id number]
[2020-11-19 21:09] LABS: ALBUMIN 2.8 g/dL (3.2-5.5); ALBUMIN/GLOBULIN RATIO 0.6 (1.0-2.2); BILIRUBIN,TOTAL 2.9 mg/dL (0.2-1.0); CALCIUM 8.3 mg/dL (8.5-10.3); CREATININE 4.8 mg/dL (0.6-1.2); TOTAL PROTEIN 7.6 g/dL (6.7-8.2)
[2020-11-19] MEDS ORDERED: SODIUM CHLORIDE 0.9% 500 ML IV STA (21:13)
[2020-11-19 21:27] LABS: BAND NEUTROPHILS % (MANUAL) 12 %; EOSINOPHILS # (MANUAL) 0.8 10^3/uL (0-0.7); LYMPHOCYTES # (MANUAL) 1.6 10^3/uL (1.5-3.5); LYMPHOCYTES % (MANUAL) 4 %; MONOCYTES # (MANUAL) 5.2 10^3/uL (0.0-1.0); PLATELET ESTIMATE, MANUAL DECREASED (<130,000) (NORMAL); PLATELET MORPHOLOGY NORMAL APPEARANCE (NORMAL); RBC MORPHOLOGY (MULTIPLE) NORMAL APPEARANCE (NORMAL)
[2020-11-19 21:28] LABS: DIFFERENTIAL COMMENT MANUAL DIFFERENTIAL
[2020-11-19] MEDS ORDERED: MORPHINE 2 MG/ML CARPUJECT IVP STA (21:33)
[2020-11-19 21:35] LABS: GLUCOSE, URINE (UA) NEGATIVE (NEGATIVE); KETONES,URINE (UA) NEGATIVE (NEGATIVE); LEUKOCYTE ESTERASE, URINE TRACE (NEGATIVE); NITRITE,URINE NEGATIVE (NEGATIVE); OCCULT BLOOD,URINE NEGATIVE (NEGATIVE); PROTEIN,URINE 100 mg/dL (NEGATIVE); UROBILINOGEN,URINE 1 (NORMAL) E.U./dL (NORMAL)
[2020-11-19 21:44] LABS: BILIRUBIN,URINE NEGATIVE (NEGATIVE); CLARITY,URINE HAZY (CLEAR); ICTOTEST,URINE NEGATIVE
[2020-11-19 21:48] LABS: AMORPHOUS SEDIMENT,UR Moderate /LPF; BACTERIA,URINE Few /HPF (None Seen); CASTS, URINE 3-5 Fine Granular /LPF; RBC,URINE 0-5 /HPF (0-5); SQUAMOUS EPITHELIAL CELL,UR FEW Squamous (<= Few)
[2020-11-19] MEDS ORDERED: ACETAMINOPHEN 325 MG TABLET PO PRN (21:56)
[2020-11-19] MEDS ORDERED: ONDANSETRON 4 MG/2 ML VIAL IVP PRN (21:56)
[2020-11-19] MEDS ORDERED: SODIUM CHLORIDE FLUSH 0.9% 10 ML SYRINGE IVP PRN (21:56)
[2020-11-19] MEDS ORDERED: oxyCODONE 5 MG TABLET PO PRN (21:56)
[2020-11-19 22:00] LABS: INR 2.1 (0.8-1.2); PT - PROTHROMBIN TIME 22.5 secs (9.9-12.6)
--- NOTE | 2020-11-19 22:14 | HISTORY & PHYSICAL EXAMINATION ---
Chief Complaint - Chief Complaint Chief Complaint: short of breath, anasarca w inc 20 lbs in 3 weeks History of Present Illness - Admitted From Admitted From:: Hotel via EMS - History Obtained From Records Reviewed: [facility] History obtained from: Dr. nelson and patient Exam Limitations: none - History of Present Illness HPI Comment/Other: This is a 64-year-old white male that we met for the first time in September 2020. He already had a diagnosis of congestive heart failure and had an ejection fraction in the past as low as 10%. He had worse symptoms of congestive heart failure in March 2015 and a stress test in March 2015 showed a moderate area of ischemia of the anterior wall and anterior septum. Ejection fraction was 37% with global hypokinesis. He was then bypassed with a ABRAMS to the LAD May 24, 2015. A follow-up echocardiogram October 07, 2018 has an ejection fraction of 45 to 50%. Global hypokinetic left ventricular function. Mild to moderately dilated left ventricle. Mildly dilated RA. He has had chronic atrial fibrillation diagnosed with a March 2015 admission. He is noncompliant with the use of metoprolol, and also has alcohol abuse issues. Anticoagulation is supposed to be with Xarelto. He is usually seen at [place] and is followed by Nirav Bowman MD. He ended up being admitted here in October 07 2020 after starting to have progressive shortness of breath and a 30 pound weight gain starting in the summer 2019. He tried increasing his Lasix in the summer, and felt like he was not having any success. So he stopped taking his medications. He had just moved into a hotel because his kicked him out of the house and served him with divorce papers. He was discharged October 10 after being treated with IV Lasix, metoprolol. A repeat echo showed him to have an ejection fraction of 35% with an RVSP of 53 mmHg. Overall his body anasarca with scrotal edema, leg edema and abdominal wall edema had improved. His atrial fibrillation was controlled to 92 at rest. If he did exert himself such as getting up to go to the bathroom his pulse would go up so his metoprolol was increased from 100 to 150 a day. During that stay his acute kidney injury, hyponatremia resolved. He states that he used to drink quite a bit, but in response to the congestive heart failure decompensation had stopped drinking somewhere in July 2020. When he left the hospital he was going to the [facility] and is going to stay there. He has been at the [facility]. He rationalizes that when you take into account the cost of housing, the [facility] is in the back place to pay to live. He has had [address] date with a restraining order that he was not able to make because of his shortness of breath. He now returns to our emergency room with a 20 pound weight gain over the last 3 weeks. Worsening edema of his legs, up his thighs, into his abdomen and all the way up into his arms and chest. It is getting harder and harder for him to walk and mobilize. He is developing mild generalized weakness that is scaring him. He has not seen a PCP since he was discharged. He has not seen cardiology. He felt that as long as he took these medications, he would be "okay". He is drinking about 1/5 of whiskey a week +2 beers a day.He states that he is compliant with his medication list. He denies angina. But it is getting harder for him to breathe. So his chest always feels like he cannot get a deep breath. He denies fever, chills, cough. Appetite is not very good but he still eating. He has had no blood in his stools, blood in his urine. He does note that his u rine has been getting steadily darker and darker. He says that in spite of the Lasix he is not urinating very much. In the emergency room he was initially hypoxic after being transferred by EMS to 88%. He was put on 2 L. Any movement resulted in tachypnea and increased respiratory effort. He had a blood pressure of 113/83 with a heart rate of 113 that was A. fib with RVR. Temperature 37.6. In the ER he was 94% on room air. He had crackles, and severe anasarca from toes to chest. In an effort to control his A. fib he received diltiazem but it dropped his pressure to 89/47. He then had to have a bolus given back to him. Blood pressure is now 96/56. Labs have him at hyponatremia of 126, hyperkalemia 5.4. Creatinine is 4.8 with a BUN of 98. Lactic acid 2.3. BNP is 632. Albumin 2.8. He has a newly elevated white cell count of 26, hemoglobin 8.7. MCV 116. This that she lower than it was in September when his MCV was as high as 122. Platelets are low at 107 but they lower in September in the 60s and 70s. He does have bandemia at 12%. Chest x-ray and has CHF exacerbation but no pneumonia. Urinalysis is dark yellow, with proteinuria, 6-10 white cells, few squamous cells, a few bacteria, and granular casts. Dr. Alicea is asking for admission for combination of acute on chronic congestive heart failure as well as possible cirrhosis and ascites. With his last admission the patient wanted to be a full code. He recognizes that he is sliding downhill and deteriorating. I have explained to him that he is deteriorating with regards to heart and liver at this time. He wants to change his CODE STATUS to DO NOT RESUSCITATE. History - Past Medical History Cardiovascular: reports: Congestive heart failure (Since approximately 2013. Ejection fraction as low as 10%. Most recent ejection fraction 35%.), Hypertension, Coronary artery disease (Diagnosed with CHF exacerbation April 2015 with ABRAMS to LAD after MS), Atrial flutter, Atrial fibrillation Respiratory: reports: COPD Neuro: reports: None Endocrine/Autoimmune: reports: Type 2 diabetes : reports: None Psych: reports: None Musculoskeletal: reports: None Derm: reports: None Other Past Medical History: Alcohol abuse - Past Surgical History Cardiovascular: reports: Coronary stent - Family & Social History Family History Comment/Other: Dad late 70s early 80s of congestive heart failure and coronary artery disease. Mom in her 70s of lymphoma after surviving breast cancer. 2 sisters. One in [place] and one in [place]. As far as he knows they are healthy. There is no diabetes, cancer, heart attack, stroke or alcoholism in them. 1 daughter, 19, lives with her mother in [place]. Healthy. Living arrangement: Other ([facility] in [place]) Living Situation: Alone Social History Notes: He previously worked for [employer] but is now retired. He moved here to [facility] in June from [place]. He was living with his but he was kicked out of the house 10/06/2020. No history of smoking. He has a history of alcohol abuse in the past but stopped July 2020. After discharge October 07 he went back to drinking 2 beers a day +1/5 of whiskey a week. He does not consider that "very much". He tried recreational substances a couple of times when he was in his 20s. Never on a regular basis. - Substance History Abuse: Recurrent use of substance despite neg consequences: Alcohol Abuse Issues: Other (Liver failure and heart failure kidney failure) Dependence: Experiences withdrawal or developed tolerances: NONE - POLST Patient has POLST: No POLST Status: DNR Meds/Allgy - Home Medications Home Medications: Ambulatory Orders Medication Instructions Recorded Confirmed Rivaroxaban [Xarelto] 20 mg PO DAILY 10/06/20 11/19/20 lisinopriL [Zestril] 5 mg PO DAILY 10/06/20 11/19/20 Atorvastatin Calcium 40 mg PO QPM 10/07/20 11/19/20 Metoprolol Succinate [Toprol Xl] 100 mg PO DAILY 10/07/20 11/19/20 Furosemide [Lasix] 40 mg PO DAILY #30 tablet 10/10/20 11/19/20 Metoprolol Succinate [Toprol Xl] 50 mg PO DAILY #30 tablet 10/10/20 11/19/20 - Allergies Allergies/Adverse Reactions: Allergies Allergy/AdvReac Type Severity Reaction Status Date / Time No Known Drug Allergies Allergy Verified 11/19/20 20:42 Review of Systems - Constitutional Constitutional: reports: Fatigue, Malaise, Weakness, Poor appetite, Weight gain - Eyes Eyes: denies: Pain, Irritation, Amaurosis, Blurred vision - Ears, Nose & Throat Ears, Nose & Throat: reports: Nasal obstruction, Nasal congestion. denies: Nasal pain, Nasal discharge, Postnasal drainage, Sore throat, Hoarseness - Cardiovascular Cariovascular: reports: Irregular heart rate, Edema, Lightheadedness, Exertional dyspnea, Decr. exercise tolerance - Respiratory Respiratory: reports: Snoring, Orthopnea, SOB at rest, SOB with exertion. denies: Cough, Sputum production, Wheezing, Hemoptysis - Gastrointestinal Gastrointestinal: reports: Abdominal distention, Change in bowel habits (Although he does not feel constipated, he feels like he is not going to the bathroom as often he is used to), Bloating, Poor appetite. denies: Abdominal pain, Constipation, Diarrhea, Black stools, Bloody stools, Nausea, Vomiting - Genitourinary Genitourinary: reports: Other (Less and less urine output, urine gradually turning darker. No dysuria. Scrotum and penis getting very swollen.). denies: Dysuria, Frequency, Urgency, Hematuria - Musculoskeletal Musculoskeletal: reports: Muscle pain (In legs as a stretch. Hurts to touch his legs. Hurts to stand up.), Back pain, Muscle weakness (In the last week it is gotten impossible for him to try and get out of bed to get to the bathroom. He feels like he just has generalized weakness and he is going to fall). denies: Joint pain - Integumentary Integumentary: reports: Pruritis (Legs and back). denies: Rash, Lumps, Acne - Neurological Neurological: reports: General weakness, Memory problems. denies: Focal weakness, Headache, Dizziness, Pre-existing deficit - Psychiatric Psychiatric: reports: Depression. denies: Anxiety, Suicidal, Delusions, Hallucinations - Endocrine Endocrine: denies: Polyuria, Polydypsia, Polyphagia, Intolerance to cold - Hematologic/Lymphatic Hematologic/Lymphatic: denies: Anemia, Bruising, Petechiae Prior Level of Functionality: He lives by himself in his hotel room. While he is able to get up and go to the bathroom, feed himself, dress himself. Is getting harder and harder. He brings in a suitcase with all his belongings. He has huge pliers. When we ask him what that is about he says that it is gotten to the point where he cannot pull on his socks so finagles his toes into the entry of the sock then uses pliers to pull his socks up. In the last day or so, it is always been impossible to get out of bed because of weakness, and shortness of breath with just even rolling over in bed trying to sit up. Exam - Vital Signs Reviewed Vital Signs: Yes Vital Signs: Vital Signs x48h Temp Pulse Resp BP Pulse Ox 11/19/20 22:10 112 H 12 139/84 H 100 11/19/20 21:45 36.4 C L 111 H 11 L 113/74 100 11/19/20 21:30 36.4 C L 121 H 12 117/71 98 11/19/20 21:18 106 H 12 96/56 L 97 11/19/20 21:15 90 89/47 L 98 11/19/20 21:12 86 91/50 L 11/19/20 21:07 107 H 14 93/64 94 11/19/20 20:52 105 H 15 113/83 H 94 11/19/20 20:42 37.6 C 113 H 18 113/83 H 94 - Physical Exam General Appearance: positive: Alert, Moderate distress, Other (Severely morbidly obese white male who is tachypneic speaking to me, occasionally has to grunt respiration to finish a sentence, anasarca from mid chest all the way down to toes.) Eyes Bilateral: positive: PERRL, EOMI, Other (Sclera edematous. Mildly injected.) ENT: positive: No signs of dehydration Neck: positive: Other (He is so obese and neck is so short I really cannot assess for JVD.). negative: Stiff neck, Carotid bruit Respiratory: positive: Rales (At bases. Very diminished breath sounds from mid lung bonilla down.), Other (Tachypnea at rest, increases with speaking to me and is able to complete a sentence or 2). negative: Wheezes, Rhonchi Cardiovascular: positive: Irregularly irregular (Distant cardiac tones), Tachycardia, Other (Sternal vertical chest scar, healed). negative: Gallop/S4, Friction rub Peripheral Pulses: positive: 0 Abdomen: positive: Non-tender, Abnml bowel sounds (Hypoactive), Other (Very huge abdominal pannus, no Sydney intertrigo below the pannus or in intertriginous folds. The skin of his abdominal wall is 2+ edema. Edema extended to scrotum, penis, perineum and buttocks. The skin hardens to woody edema from thighs on down). negative: Guarding, Rebound Back: positive: Other (Edema) Skin: positive: Warm, Dry. negative: Diaphoresis Extremities: positive: Full ROM, Other (Severe anasarca) Neurologic/Psychiatric: positive: Oriented x3, CN's nml (2-12). negative: Motor nml (Diffuse weakness. He is able to lift up his head, but he needs 2-3 people assist to sit him up. Total assist to transfer from an [facility] to MedSurg gurney) Conclusion/Plan - Problem List (1) Acute renal failure Conclusion/Plan: He has lactic acidosis, congestive heart failure, hyperkalemia, and a severe creatinine rise of 4.8. He describes less and less urine output in spite of taking his diuretics. Urinalysis has granular casts.I do not know why he has gone into kidney failure. Could his ejection fraction have gone down drastically, could be less compliant with medications that he admits to, could he have obstruction? When Novak was placed in the emergency room he had less than 60 cc of urine in his bladder. Plan: Inpatient stay It was thought that he may be able to turn the corner in this hospital which is a [facility] and has no dialysis or ECHO today or subspecialty service. As such I will diurese him with a Bumex drip, try and watch his blood pressures, repeat labs in the next 4 to 6 hours. If he does not improve, I have warned him that I may need to transfer him for dialysis. Qualifiers: Acute renal failure type: with acute tubular necrosis Qualified Code(s): N17.0 - Acute kidney failure with tubular necrosis (2) Hyperkalemia Conclusion/Plan: an amp of D50 with insulin IV push 10 units. Repeat BMP in 4 hours However, once I wrote that order, regular insulin is not available in the hospital tonight. They cannot verify the regular insulin dose via in the Pyxis. As such we will use Kayexalate and caldium gluconate. Check EKG (3) Acute on chronic systolic (congestive) heart failure Conclusion/Plan: At this time is too early for me to say if he has heart failure exacerbation is from complete renal failure with anuria or is it from A. fib with RVR. He tells me he is compliant with his medications, but not very descriptive about his diet. He lives in a hotel and is relying on fast food. He is also abusing alcohol. review of his weights here: Selected Entries 10/06/20 10/07/20 10/07/20 22:46 05:04 08:08 Weight (kg) 158.757 kg 158.757 kg 162.5 kg 10/08/20 10/09/20 10/10/20 06:00 03:48 06:00 Weight (kg) 157.5 kg 158 kg 159 kg 01/24/21 01/24/21 20:42 22:46 Weight (kg) 168.8 kg 161 kg Plan: Bumex drip Frequent monitoring of vitals and electrolytes Low-dose beta-gavino Right now no EMILIE inhibitor as I diurese him and slow down his heart rate Echocardiogram tomorrow morning (4) Atrial fibrillation with rapid ventricular response Conclusion/Plan: The atrial fibrillation is a chronic diagnosis. Lack of rate control could be to the CHF, alcohol abuse, or electrolyte abnormalities in the face of renal failure. Plan: Correct electrolyte abnormalities as much as I can Diuresis Low-dose beta-gavino and hope to avoid the hypotension he had in the ER Xarelto cannot be given in renal failure. Apixaban is usually recommended. Since he may be facing some procedures will use Lovenox. Dosing would be 1 mg/kg twice daily, and he is 161 kg. Because of renal failure will reduce to 80 mg subcu twice daily until pharmacy tells me otherwise. It will need to be held if he ends up having a thoracentesis. check add on troponin to his labs from the ER and recheck in the am. (5) Alcohol abuse Conclusion/Plan: In a patient who has diffuse anasarca, the possibility of alcoholic liver disease with ascites is certainly present. However the CT scan shows minimal ascites. No cirrhotic changes of the liver, no stones or obstruction are seen. Bili is 2.9, and AST and ALT are normal. He could have passive congestion of the liver because of his CHF. BNP is 632. Plan: Folate and thiamine p.o. Watching for withdrawal. He says he has never had that before. (6) Pleural effusion, right Conclusion/Plan: Chest x-ray does not comment on his size, but CT of the abdomen shows significant large right pleural effusion. At this time I am assuming is assoc iated with his congestive heart failure, not so much alcoholic liver disease and ascites since minimal ascites is seen on CT. He would need a diagnostic tap as well as a therapeutic tap in the next day or 2 to help with his tachypnea. Right now I am going to focus on diuresis, correcting his electrolytes, and seeing if he is truly in renal failure that would need transfer to a higher level of care (7) Lactic acidosis Conclusion/Plan: He has a history of diabetes but is not on metformin. He is an alcoholic and could have cirrhosis. He does not appear to be infected by his history and there is no fever, but, white cell count is newly elevated at 26,000 with bandemia. Urinalysis is not infected. Chest x-ray without pneumonia. Suspect that this may be from renal failure. Plan: Hold off on antibiotics blood cultures drawn and will be pending for at least 24-48 hours Reassess in 4 hours to see if improves with diuresis. (8) Leukocytosis Conclusion/Plan: Infection is a likely source. However chest x-ray does not show pneumonia, urinalysis is without infection, skin review does not show breakdown, and abdominal exam is benign from peritonitis. We will continue to monitor, observe for signs or symptoms of infection and then will start empiric antibiotic therapy at that time. Most likely broad-spectrum. Will avoid nephrotoxic drugs such as vancomycin. Qualifiers: Leukocytosis type: bandemia Qualified Code(s): D72.825 - Bandemia (9) Macrocytic anemia Conclusion/Plan: Alcoholism certainly could be a cause. He also has thrombocytopenia. However CT scan does not confirm hepatosplenomegaly or portal vein flow reversal. Bone marrow dyscrasia as part of the differential is also possible. : Check TSH Check folate and B12 - Lab Results Lab results reviewed: Yes Fish Bones: 11/19/20 20:45 11/19/20 20:45 - Diagnostic Imaging Results Diagnostic Imaging Results: positive: Final report reviewed Diagnostic Imaging Results Comments: Chest x-ray with congestive heart failure exacerbation, mild right basilar atelectasis, small right pleural effusion, pulmonary edema. Preliminary CT abdomen report with large right pleural effusion, dependent atelectasis, cardiomegaly, extensive generalized body wall edema. Gallbladder and solid organs are unremarkable. Small amount of ascites. No dilated loops.
[2020-11-19 22:40] LABS: C. PNEUMONIAE- RESP PCR PANEL NOT DETECTED
[2020-11-19] MEDS ORDERED: INSULIN REGULAR HUMAN 100 UNIT/1 ML 10 ML MDV IVP STA (23:03)
[2020-11-19] MEDS ORDERED: DEXTROSE 50% ABBOJECT 25 GM/50 ML SYRINGE IVP STA (23:03)
[2020-11-19] MEDS ORDERED: METOPROLOL 5 MG/5 ML VIAL IVP PRN (23:19)
[2020-11-19] MEDS ORDERED: BUMETANIDE INJ 10 MG in SODIUM CHLORIDE 0.9% 210 ML IV SCH (23:45)
[2020-11-19] MEDS ORDERED: SODIUM POLYSTYRENE SULFONATE 15 GM/60 ML BOTTLE PO STA (23:51)
[2020-11-19] MEDS ORDERED: CALCIUM GLUCONATE 1,000 MG in SODIUM CHLORIDE 0.9% 50 ML IV STA (23:51)
[2020-11-20 00:56] LABS: CALCIUM 8.4 mg/dL (8.5-10.3); CREATININE 4.7 mg/dL (0.6-1.2)
[2020-11-20] MEDS ORDERED: BUMETANIDE 1 MG/4 ML VIAL ONE ×3 (01:01→01:06)
[2020-11-20] MEDS: SODIUM CHLORIDE FLUSH 0.9% 10 ML SYRINGE IVP SCH ×2 (01:05→08:56)
[2020-11-20] MEDS ORDERED: SODIUM CHLORIDE 0.9% 500 ML IV ONE (02:06)
[2020-11-20] MEDS: ONDANSETRON ODT 4 MG TABLET TL PRN ×2 (04:47→10:23)
[2020-11-20 05:21] LABS: BASOPHILS % (AUTO) 0.2 %; EOSINOPHILS % (AUTO) 0.1 %; HGB - HEMOGLOBIN 8.7 g/dL (14.0-18.0); MEAN CORPUSCULAR HEMOGLOBIN 39.4 pg (27.0-31.0); MEAN CORPUSCULAR HGB CONC 33.2 g/dL (32.0-36.0); MEAN CORPUSCULAR VOLUME 118.6 fL (80.0-94.0); MEAN PLATELET VOLUME 11.7 fL (7.4-11.4); MONOCYTES % (AUTO) 33.5 %; NEUTROPHILS % (AUTO) 60.1 %; PLT - PLATELET COUNT 109 10^3/uL (130-450); RED BLOOD COUNT 2.21 10^6/uL (4.70-6.10); RED CELL DISTRIBUTION WIDTH 15.4 % (12.0-15.0)
[2020-11-20 05:24] LABS: ABNORMAL LYMPHS % (MANUAL) 0 %
[2020-11-20 05:31] LABS: CALCIUM 8.5 mg/dL (8.5-10.3); CREATININE 4.7 mg/dL (0.6-1.2)
[2020-11-20 05:43] LABS: BAND NEUTROPHILS % (MANUAL) 3 %; LYMPHOCYTES # (MANUAL) 0.8 10^3/uL (1.5-3.5); LYMPHOCYTES % (MANUAL) 2 %; MONOCYTES # (MANUAL) 14.8 10^3/uL (0.0-1.0)
[2020-11-20 05:44] LABS: PLATELET ESTIMATE, MANUAL DECREASED (<130,000) (NORMAL); PLATELET MORPHOLOGY NORMAL APPEARANCE (NORMAL); RBC MORPHOLOGY (MULTIPLE) 1+ ANISOCYTOSIS (NORMAL)
[2020-11-20 05:47] LABS: DIFFERENTIAL COMMENT MANUAL DIFFERENTIAL
--- NOTE | 2020-11-20 07:35 | DISCHARGE SUMMARY ---
<Preet Salazar - Last Filed: 11/20/20 19:23> Discharge Summary Code Status: Attempt Resuscitation Condition at Discharge: Poor Discharge Disposition: 02 Transfer Acute Care Hosp Discharge [facility] Name: [facility]RSE Hospital Course: Patient was graciously accepted by the hospitalist service. I also discussed the case with nephrology who were in agreement with transfer. I did discuss CODE STATUS once again with the patient prior to transfer and he wanted to be a full code. A POLST form was filled out which reflected this. - ALLERGIES Allergies/Adverse Reactions: Allergies Allergy/AdvReac Type Severity Reaction Status Date / Time No Known Drug Allergies Allergy Verified 11/19/20 20:42 - MEDICATIONS Home Medications: Ambulatory Orders Medication Instructions Recorded Confirmed Rivaroxaban [Xarelto] 20 mg PO DAILY 10/06/20 11/20/20 lisinopriL [Zestril] 5 mg PO DAILY 10/06/20 11/20/20 Atorvastatin Calcium 40 mg PO QPM 10/07/20 11/20/20 Metoprolol Succinate [Toprol Xl] 150 mg PO QPM 10/07/20 11/20/20 Furosemide [Lasix] 40 mg PO DAILY #30 tablet 10/10/20 11/20/20 - LABS Result Diagrams: 11/20/20 05:05 11/20/20 05:05 <Samantha Sue - Last Filed: 11/20/20 22:58> Discharge Summary Admit Date: 11/19/20 Discharge Date: 11/20/20 Discharging Provider: Samantha Sue MD Primary Care Provider: Peter Dawson MD Code Status: Do Not Attempt Resuscitation - DIAGNOSES Discharge Diagnoses with Status of Each Condition: 1. Acute renal failure due to ATN 2. Hyperkalemia 3. Acute on chronic systolic heart failure 4. Atrial fibrillation with rapid ventricular response 5. Alcohol abuse 6. Right pleural effusion 7. Lactic acidosis 8. Leukocytosis 9. Macrocytic anemia 10. Severe anasarca - HPI History of Present Illness: This is a 64-year-old white male that we met for the first time in September 2020. He already had a diagnosis of congestive heart failure and had an ejection fraction in the past as low as 10%. He had worse symptoms of congestive heart failure in March 2015 and a stress test in March 2015 showed a moderate area of ischemia of the anterior wall and anterior septum. Ejection fraction was 37% with global hypokinesis. He was then bypassed with a ABRAMS to the LAD May 24, 2015. A follow-up echocardiogram October 07, 2018 has an ejection fraction of 45 to 50%. Global hypokinetic left ventricular function. Mild to moderately dilated left ventricle. Mildly dilated RA. He has had chronic atrial fibrillation diagnosed with a March 2015 admission. He is noncompliant with the use of metoprolol, and also has alcohol abuse issues. Anticoagulation is supposed to be with Xarelto. He is usually seen at [facility] and is followed by Nirav Bowman MD. He ended up being admitted here in October 07 2020 after starting to have progressive shortness of breath and a 30 pound weight gain starting in the summer 2019. He tried increasing his Lasix in the summer, and felt like he was not having any success. So he stopped taking his medications. He had just moved into a hotel because his kicked him out of the house and served him with divorce papers. He was discharged October 10 after being treated with IV Lasix, metoprolol. A repeat echo showed him to have an ejection fraction of 35% with an RVSP of 53 mmHg. Overall his body anasarca with scrotal edema, leg edema and abdominal wall edema had improved. His atrial fibrillation was controlled to 92 at rest. If he did exert himself such as getting up to go to the bathroom his pulse would go up so his metoprolol was increased from 100 to 150 a day. During that stay his acute kidney injury, hyponatremia resolved. He states that he used to drink quite a bit, but in response to the congestive heart failure decompensation had stopped drinking somewhere in July 2020. When he left the hospital he was going to the [facility] and is going to stay there. He has been at the [facility]. He rationalizes that when you take into account the cost of housing, the [facility] is in the back place to pay to live. He has had [address] with a restraining order that he was not able to make because of his shortness of breath. He now returns to our emergency room with a 20 pound weight gain over the last 3 weeks. Worsening edema of his legs, up his thighs, into his abdomen and all the way up into his arms and chest. It is getting harder and harder for him to walk and mobilize. He is developing mild generalized weakness that is scaring him. He has not seen a PCP since he was discharged. He has not seen cardiology. He felt that as long as he took these medications, he would be "okay". He is drinking about 1/5 of whiskey a week +2 beers a day.He states that he is compliant with his medication list. He denies angina. But it is getting harder for him to breathe. So his chest always feels like he cannot get a deep breath. He denies fever, chills, cough. Appetite is not very good but he still eating. He has had no blood in his stools, blood in his urine. He does note that his urine has been getting steadily darker and darker. He says that in spite of the Lasix he is not urinating very much. In the emergency room he was initially hypoxic after being transferred by EMS to 88%. He was put on 2 L. Any movement resulted in tachypnea and increased respiratory effort. He had a blood pressure of 113/83 with a heart rate of 113 that was A. fib with RVR. Temperature 37.6. In the ER he was 94% on room air. He had crackles, and severe anasarca from toes to chest. In an effort to control his A. fib he received diltiazem but it dropped his pressure to 89/47. He then had to have a bolus given back to him. Blood pressure is now 96/56. Labs have him at hyponatremia of 126, hyperkalemia 5.4. Creatinine is 4.8 with a BUN of 98. Lactic acid 2.3. BNP is 632. Albumin 2.8. He has a newly elevated white cell count of 26, hemoglobin 8.7. MCV 116. This that she lower than it was in September when his MCV was as high as 122. Platelets are low at 107 but they lower in September in the 60s and 70s. He does have bandemia at 12%. Chest x-ray and has CHF exacerbation but no pneumonia. Urinalysis is dark yellow, with proteinuria, 6-10 white cells, few squamous cells, a few bacteria, and granular casts. Dr. Alicea is asking for admission for combination of acute on chronic congestive heart failure as well as possible cirrhosis and ascites. With his last admission the patient wanted to be a full code. He recognizes that he is sliding downhill and deteriorating. I have explained to him that he is deteriorating with regards to heart and liver at this time. He wants to change his CODE STATUS to DO NOT RESUSCITATE. History - Past Medical History Cardiovascular: reports: Congestive heart failure (Since approximately 2013. Ejection fraction as low as 10%. Most recent ejection fraction 35%.), Hypertension, Coronary artery disease (Diagnosed with CHF exacerbation April 2015 with ABRAMS to LAD after [place]), Atrial flutter, Atrial fibrillation Respiratory: reports: COPD Neuro: reports: None Endocrine/Autoimmune: reports: Type 2 diabetes : reports: None Psych: reports: None Musculoskeletal: reports: None Derm: reports: None Other Past Medical History: Alcohol abuse - Past Surgical History Cardiovascular: reports: Coronary stent - CONSULTS | PROCEDURES Procedures: 1. Chest x-ray with pulmonary edema, mild right basilar atelectasis, small right pleural effusion. Marked cardiomegaly. 2. Preliminary report of CT of abdomen and pelvis without contrast shows cardiomegaly, extensive generalized body wall edema, gallbladder and solid organs unremarkable, no stones. Very small amount of ascites. Mildly increased bowel fluid. No dilated loops. No pneumoperitoneum. Impression is that of anasarca and consider volume overload secondary to renal failure. 3. Blood cultures are pending - HOSPITAL COURSE Hospital Course: We admitted him his acute renal failure with the thought that we might be able to treat it if it was simply due to acute systolic congestive heart failure due to A. fib that was out of control. We put him on a low-dose Bumex drip of 0.5 mg/h. Treated the hyperkalemia with calcium gluconate and Kayexalate (regular insulin was not available so I could not use amp of D50 and insulin). He also had an elevated white cell count that was not clearly associated with flexion and that chest x-ray had no pneumonia, urinalysis was negative other than for ATN. CT also showed a large right pleural effusion and may need thoracentesis. Overnight he has not responded. While his potassium is slightly improved to 5.1, BUN is 100, creatinine is 4.7 and he is having emesis about once an hour. He has a macrocytic anemia with an MCV of 116 that is most likely due to alcohol abuse. Iron is 42, ferritin 330, and B12 is elevated at 1082. BNP has worsened from admission. He was initially 632 and is now 827. White cell count is also increased from 26,000-38,000. Still no fever, and his A. fib is still tachycardic with the highest rate being 119. At the time of this dictation, I have reached out to [facility] to accept this patient in transfer for dialysis. There change of shift and will call me back. The daytime hospitalist will receive their phone call and make the appropriate arrangements. At discharge temperature is 36 7, pulse is 111, blood pressure 125/87. He is fully arousable. 97% on 2 L. A morbidly obese white male, miserable with nausea. Short neck difficult to assess for JVD. On the right side of his neck he has a small lesion with loss of skin. He does not know how that happened. It is about the size of half a centimeter where his neck is been abraded. He has crackles on both lung bonilla, with increased respiratory rate when he speaks or tries to move around in bed. Occasionally he grunts with his respiration but there is no use of accessory muscles. He is not retracting and is not using his abdominal muscles. He is a fast irregular rate and rhythm with distant cardiac tones. The abdomen is hugely obese. Anasarca starts in the lower chest wall and goes all the way down his legs. As you down his body the edema goes from soft 2+ edema to tense woody edema starting at the thighs to the feet. He is diffusely weak, but able to follow commands and moves all extremities. Greater than 30 minutes spent coordinating discharge. - LABS Result Diagrams: 11/20/20 05:05 11/20/20 05:05
--- NOTE | 2020-11-20 07:41 | Discharge Plan ---
Discharge Plan Problem Reviewed?: Yes Disposition: 02 Transfer Acute Care Hosp Condition: Poor No Smoking: If you smoke, Please STOP! Call for help. Follow-up with: Peter Dawson MD [Primary Care Provider] -
--- NOTE | 2020-11-20 08:04 | CT Report ---
PROCEDURE: Abdomen/Pelvis WO INDICATIONS: renal failure, edema TECHNIQUE: Noncontrast 5 mm thick sections acquired from the diaphragms to the symphysis. 5 mm coronal and sagi ttal reformats were then performed. For radiation dose reduction, the following was used: automated exposure control, adjustment of mA and/or kV according to patient size. COMPARISON: None. FINDINGS: Image quality: Excellent. ABDOMEN: Lung bases: There is a moderate right pleural effusion and a trace left pleural effusion with atelect asis of the adjacent lung bases. Heart size is normal. Solid organs: Liver and spleen are normal in size. Gallbladder is mildly contracted. Pancreas is n ormal in contours. No adrenal nodules. Kidneys are normal in size, without hydronephrosis or nephro lithiasis. Peritoneum and bowel: Unenhanced bowel loops demonstrate normal wall thickness and caliber. A small amount of ascites is seen throughout the abdomen and pelvis. There is no pneumoperitoneum. Nodes and vessels: No retroperitoneal or mesenteric adenopathy by size criteria. Aorta and inferior vena cava are normal in caliber. Miscellaneous: No ventral hernias. There is diffuse soft tissue anasarca. PELVIS: Genitourinary: The bladder is decompressed by a Novak catheter. Scrotal edema is noted. Miscellaneous: No inguinal hernias or adenopathy. Bones: No suspicious bony lesions. No vertebral body compression fractures. A healing right iuss acoustic analyst ior lateral rib fracture is noted. IMPRESSION: 1. Signs of volume overload including a small amount of ascites, diffuse soft tissue anasarca, and m oderate right and trace left pleural effusions. 2. No hydronephrosis or nephrolithiasis. There is no significant discrepancy when compared with the overnight teleradiology report. Reviewed by: Valentino Kerr MD on 11/20/2020 8:03 AM PST Approved by: Valentino Kerr MD on 11/20/2020 8:03 AM PST Station ID: [id number]
[2020-11-20] MEDS ORDERED: cefTRIAXone 2 GM VIAL IVP STA (08:17)
[2020-11-20] MEDS ORDERED: ENOXAPARIN 40 MG/0.4 ML SYRINGE SUBQ SCH (09:00)
[2020-11-20] MEDS ORDERED: ENOXAPARIN 80 MG/0.8 ML SYRINGE SUBQ SCH (09:00)
[2020-11-20] MEDS ORDERED: BUMETANIDE INJ 10 MG in SODIUM CHLORIDE 0.9% 210 ML IV SCH (10:00)
[2020-11-20 10:26] VITALS: BP 121/64
--- NOTE | 2020-11-20 11:23 | PHARMACY PROGRESS NOTE ---
- Best Possible Medication History Admit Date and Time: 11/19/20 2200 Processed by: Pharmacy Medication History completed: Yes Patient Interview: Completed Secondary Source(s): Physician records (PATIENT INTERVIEWED BY TECHNICAL SALES DIRECTOR. PATIENT ABLE TO CONFIRM HOME MEDICATIONS ), Pharmacy records, Insurance records As the person ultimately responsible for medication therapy, providers are able to order a medication from an existing home medication list in [facility] via the "Reconcile Routine" prior to Confirmation of that medication by operations support manager. Such practice is discouraged except when the physician, in their clinical judgment, deems that a medical need exists for a medication without regard to previous use.
== END 2020-11-20 11:00 | disposition short-term general hospital (02) | DRG 682 ==
LOC: EDUNIT# → SUPCPDRO 20:36 → ED 20:36 → MS3 21:56
PROVIDERS: ADMIT Specialist; ATTEND Internal Medicine
DX: N17.0 Acute kidney failure with tubular necrosis (principal); I50.23 Acute on chronic systolic (congestive) heart failure; E87.2 Acidosis; I48.20 Chronic atrial fibrillation, unspecified; E87.1 Hypo-osmolality and hyponatremia; Z68.42 Body mass index [BMI] 45.0-49.9, adult; I48.92 Unspecified atrial flutter; R78.81 Bacteremia; I11.0 Hypertensive heart disease with heart failure; A49.02 Methicillin resistant Staphylococcus aureus infection, unspecified site; E87.5 Hyperkalemia; F10.10 Alcohol abuse, uncomplicated; K70.31 Alcoholic cirrhosis of liver with ascites; D72.825 Bandemia; D53.9 Nutritional anemia, unspecified; T44.7X6A Underdosing of beta-adrenoreceptor antagonists, initial encounter; T45.516A Underdosing of anticoagulants, initial encounter; Z91.128 Patient's intentional underdosing of medication regimen for other reason; J44.9 Chronic obstructive pulmonary disease, unspecified; E11.9 Type 2 diabetes mellitus without complications; I25.10 Atherosclerotic heart disease of native coronary artery without angina pectoris; E66.01 Morbid (severe) obesity due to excess calories; D69.6 Thrombocytopenia, unspecified; Z74.09 Other reduced mobility; Z66 Do not resuscitate; Z79.01 Long term (current) use of anticoagulants; Z79.899 Other long term (current) drug therapy; Z95.5 Presence of coronary angioplasty implant and graft; I25.2 Old myocardial infarction
CPT/HCPCS: 0202U; 36415; 71045; 74176; 80048; 80053; 81001; 82607; 82728; 82746; 83540; 83605; 83880; 84484; 85025; 85610; 87040; 87086; 87150; 87181; 93005; 93308; 96374; 96375; 99285; A9270; J7040; Q0162; 81003

== ENCOUNTER 2020-11-20 10:58 | Outpatient (CLI) | payer BC | END 2020-11-20 10:59 | disposition short-term general hospital (02) | LOC: EMS 10:58 | PROVIDERS: ATTEND Surgery | DX: I50.9 Heart failure, unspecified (principal); N19 Unspecified kidney failure | CPT/HCPCS: A0425; A0426 ==